=== PATIENT | female | born 1975 | race Caucasian/White ===

== ENCOUNTER 2020-09-30 10:45 | Inpatient (IN) ==
[2020-09-30] MEDS ORDERED: SODIUM CHLORIDE 0.9% 1000ML 500 ML IV ONE (11:33)
[2020-09-30] MEDS ORDERED: ONDANSETRON INJ 2 MG/ML 2 ML VIAL IV STA ×2 (11:33→13:12)
[2020-09-30 12:03] LABS: INR 1.6 (0.9-1.1); Prothrombin Time 16.1 Seconds (9.0-12.0)
--- NOTE | 2020-09-30 12:06 | Emergency Department Note ---
History of Present Illness General Chief complaint: Illness Stated complaint: VOMITING/FATTY LIVER DISEASE Time Seen by Provider: 09/30/20 10:59 History of Present Illness Maximum Pain Intensity: 6 This patient is a pleasant 44-year-old female who presents emergency department complaining of abdominal discomfort, nausea that has gotten progressively worse over the last week. The patient has a history of alcohol abuse and ascites. She reports that she stopped drinking in 2019, however she started back up again last year during the pandemic. She is nauseated. She is also had vomiting over the last several days. Bowel movements have been loose. She has not taken anything [id number] for her symptoms. The patient has had a paracentesis in the past. Her last paracentesis was in in 2019. She has not seen her GI specialist due to a lack of insurance. Home Medications Medication Instructions Recorded Confirmed Type cholecalciferol (vitamin D3) 25 mcg PO DAILY 09/30/20 09/30/20 History fluoxetine 20 mg PO DAILY 09/30/20 09/30/20 History furosemide 20 mg PO BID 09/30/20 09/30/20 History hydroxyzine HCl 50 mg PO Q6H PRN 09/30/20 09/30/20 History melatonin 5 mg PO HS PRN 09/30/20 09/30/20 History minocycline 50 mg PO DAILY 09/30/20 09/30/20 History multivitamin 1 tab PO DAILY 09/30/20 09/30/20 History potassium gluconate 595 mg PO BID 09/30/20 09/30/20 History spironolactone 50 mg PO BID 09/30/20 09/30/20 History vitamin B complex 1 tab PO DAILY 09/30/20 09/30/20 History Allergies Allergy/AdvReac Type Severity Reaction Status Date / Time morphine AdvReac Severe Respiratory Verified 09/30/20 11:41 distress Past Med/Surg History Medical History Alcohol abuse Ascites Cirrhosis Depression with anxiety Fatty liver Surgical History H/O: hysterectomy Hx of gastric bypass Micheal-en-Y Family History Father Heart disease Social History Smoking Status: Current every day smoker Do You Dip or Chew Tobacco: No; Tobacco Cessation Education Requested by Patient: No Hx Alcohol Use: Yes Alcohol type: wine Alcohol Intake Frequency: 4 or More x per/Week Alcohol Intake Frequency Comment: 1 bottle wine/day Hx Substance Use: No Preferred Language: Tongan Communication Ability: Effective Core Analysis Operator Required: No Beliefs That Will Affect Care: None Current Living Situation: Significant Other Other Information That Helps Us Care for You: No Feels Safe at Home: Yes Safety Concerns: Feels Safe At This Time Assistive Devices: Glasses Review of Systems A total of 10 systems reviewed and were otherwise negative Physical Exam Vital Signs Vital Signs - 24 hr 09/30/20 10:52 09/30/20 12:02 09/30/20 12:34 Temperature 36.7 C Temperature Source Temporal Artery Scan Pulse Rate 109 H 82 91 H Pulse Rate [Apical] Pulse Rate from SpO2 Sensor 83 89 Respiratory Rate 20 18 14 Respiratory Effort / Characteristics Respiratory Depth Respiratory Pattern Blood Pressure 131/82 Blood Pressure [Right Arm] Blood Pressure Mean 98 Blood Pressure Mean [Right Arm] Pulse Oximetry 100 95 96 Oxygen Delivery Method Room Air Sepsis Recent Fever Within 48 Hours No Sepsis New/Unexplained Change in Mental Status No Sepsis Action Taken by Nursing No Action Required 09/30/20 12:45 09/30/20 13:00 09/30/20 13:18 Temperature Temperature Source Pulse Rate 89 94 H Pulse Rate [Apical] 91 H Pulse Rate from SpO2 Sensor 90 95 H Respiratory Rate 20 16 12 Respiratory Effort / Characteristics Non-Labored Spontaneous Respiratory Depth Normal Respiratory Pattern Regular Blood Pressure 114/69 Blood Pressure [Right Arm] 114/69 Blood Pressure Mean 84 Blood Pressure Mean [Right Arm] 84 Pulse Oximetry 94 95 95 Oxygen Delivery Method Room Air Sepsis Recent Fever Within 48 Hours Sepsis New/Unexplained Change in Mental Status Sepsis Action Taken by Nursing 09/30/20 13:30 09/30/20 13:31 09/30/20 14:00 Temperature Temperature Source Pulse Rate 93 H 94 H 95 H Pulse Rate [Apical] Pulse Rate from SpO2 Sensor 94 H 94 H 95 H Respiratory Rate 15 12 12 Respiratory Effort / Characteristics Respiratory Depth Respiratory Pattern Blood Pressure 104/69 113/76 Blood Pressure [Right Arm] Blood Pressure Mean 80 88 Blood Pressure Mean [Right Arm] Pulse Oximetry 94 94 93 Oxygen Delivery Method Sepsis Recent Fever Within 48 Hours Sepsis New/Unexplained Change in Mental Status Sepsis Action Taken by Nursing 09/30/20 14:01 09/30/20 14:30 09/30/20 14:31 Temperature Temperature Source Pulse Rate 94 H 99 H 103 H Pulse Rate [Apical] Pulse Rate from SpO2 Sensor 94 H 100 H 103 H Respiratory Rate 14 19 14 Respiratory Effort / Characteristics Respiratory Depth Respiratory Pattern Blood Pressure 116/80 Blood Pressure [Right Arm] Blood Pressure Mean 92 Blood Pressure Mean [Right Arm] Pulse Oximetry 95 94 96 Oxygen Delivery Method Sepsis Recent Fever Within 48 Hours Sepsis New/Unexplained Change in Mental Status Sepsis Action Taken by Nursing 09/30/20 15:00 09/30/20 15:01 09/30/20 15:30 Temperature Temperature Source Pulse Rate 94 H 99 H 92 H Pulse Rate [Apical] Pulse Rate from SpO2 Sensor 93 H 99 H 93 H Respiratory Rate 15 15 13 Respiratory Effort / Characteristics Respiratory Depth Respiratory Pattern Blood Pressure 103/76 104/77 Blood Pressure [Right Arm] Blood Pressure Mean 85 86 Blood Pressure Mean [Right Arm] Pulse Oximetry 95 96 94 Oxygen Delivery Method Sepsis Recent Fever Within 48 Hours Sepsis New/Unexplained Change in Mental Status Sepsis Action Taken by Nursing 09/30/20 15:31 09/30/20 16:00 09/30/20 16:01 Temperature Temperature Source Pulse Rate 92 H 97 H 94 H Pulse Rate [Apical] Pulse Rate from SpO2 Sensor 92 H 98 H 94 H Respiratory Rate 14 17 15 Respiratory Effort / Characteristics Respiratory Depth Respiratory Pattern Blood Pressure 111/63 Blood Pressure [Right Arm] Blood Pressure Mean 79 Blood Pressure Mean [Right Arm] Pulse Oximetry 93 93 93 Oxygen Delivery Method Sepsis Recent Fever Within 48 Hours Sepsis New/Unexplained Change in Mental Status Sepsis Action Taken by Nursing Constitutional WD/WN, vitals as above Eyes EOM intact bilaterally ENMT Oral mucosa slightly dry Neck trachea midline Respiratory normal respiratory effort, lungs clear to auscultation Cardiovascular RRR, no murmur, no edema Gastrointestinal (Abdomen) Abdominal distention noted. Mild tenderness to palpation in the epigastric region. No guarding or rebound tenderness. Bowel sounds present in all 4 quadrants. Musculoskeletal no cyanosis or clubbing, extremities motor strength 5/5 Skin no rashes, warm and dry Neurologic Alert and oriented x3. No focal motor deficits. Psychiatric Acting appropriately Course Course Patient was seen and examined Vital signs including blood pressure were reviewed medications list was verified with patient Labs were obtained, and a saline lock was established The patient was ordered fluids and Zofran Imaging was performed The patient was reevaluated and anxious. She was ordered Ativan. We reviewed her results. She voiced understanding. We reviewed her results. She was in agreement with possible inpatient management. The hospitalist service was consulted, and kindly agreed to evaluate the patient for possible inpatient m anagement. She remained stable in the emergency department. I reviewed discharge instructions the patient. They voiced understanding and had no further questions. Administered Medications Fluoxetine HCl (Fluoxetine Hcl 20 Mg Cap) 20 mg PO DAILY TRAV Stop: 10/31/20 08:59 Last Admin: 10/01/20 07:56 Dose: 20 mg Documented by: [id number] Folic Acid (Folic Acid 1 Mg Tab) 1 mg PO QAM TRAV Stop: 10/30/20 16:59 Last Admin: 10/01/20 07:56 Dose: 1 mg Documented by: [id number] Admin: 09/30/20 17:42 Dose: 1 mg Documented by: [id number] Melatonin (Melatonin 3 Mg Tab) 3 mg PO HS PRN PRN Reason: Sleep Stop: 10/30/20 20:47 Last Admin: 10/01/20 02:45 Dose: 3 mg Documented by: [id number] Miscellaneous (Minocycline 50 Mg: Order Awaiting Action) 1 ea N/A QS TRAV Stop: 10/31/20 07:59 Last Admin: 10/01/20 07:56 Dose: Not Given Documented by: [id number] Multivitamins (Multivitamin Tab) 1 tab PO DAILY TRAV Stop: 10/31/20 08:59 Last Admin: 10/01/20 07:56 Dose: 1 tab Documented by: [id number] Spironolactone (Spironolactone 25 Mg Tab) 75 mg PO BID17 TRAV Stop: 10/30/20 16:59 Last Admin: 10/01/20 07:56 Dose: 75 mg Documented by: [id number] Admin: 09/30/20 17:43 Dose: 75 mg Documented by: [id number] Thiamine HCl (Thiamine Hcl 100 Mg Tab) 100 mg PO QAM TRAV Stop: 10/30/20 16:59 Last Admin: 10/01/20 07:56 Dose: 100 mg Documented by: [id number] Admin: 09/30/20 17:41 Dose: 100 mg Documented by: [id number] Vitamin B Complex (Vitamin B Complex Tab) 1 tab PO DAILY TRAV Stop: 10/31/20 08:59 Last Admin: 10/01/20 07:56 Dose: 1 tab Documented by: [id number] Vitamin D (Cholecalciferol 1,000 Units 25 Mcg Tab) 1,000 units PO DAILY TRAV Stop: 10/31/20 08:59 Last Admin: 10/01/20 07:56 Dose: 1,000 units Documented by: [id number] Discontinued Medications Gabapentin (Gabapentin 600 Mg Tab) 1,200 mg PO 1715 ONE Stop: 09/30/20 17:16 Last Admin: 09/30/20 17:44 Dose: 1,200 mg Documented by: [id number] Gabapentin (Gabapentin 600 Mg Tab) 600 mg PO Q6H TRAV Stop: 10/01/20 06:01 Last Admin: 10/01/20 05:38 Dose: 600 mg Documented by: [id number] Admin: 10/01/20 00:12 Dose: 600 mg Documented by: [id number] Sodium Chloride (Nss 1000ml) 500 mls @ 999 mls/hr IV .Q31M ONE Stop: 09/30/20 12:03 Last Infusion: 09/30/20 13:00 Dose: 0 mls/hr Documented by: [id number] Admin: 09/30/20 11:51 Dose: 999 mls/hr Documented by: [id number] Lorazepam (Ativan) 1 mg in 2 mls @ 2 mls/min IV NOW STA Stop: 09/30/20 12:48 Last Admin: 09/30/20 13:13 Dose: 2 mls/min Documented by: [id number] Potassium Acetate 10 meq/ (Sodium Chloride) 105 mls @ 105 mls/hr IV Q1H ONE Stop: 09/30/20 13:48 Last Admin: 09/30/20 13:28 Dose: Not Given Documented by: [id number] Magnesium Sulfate/Dextrose (Magnesium Sulfate / D5w) 1 gm in 100 mls @ 100 mls/hr IV NOW STA Stop: 09/30/20 13:50 Last Infusion: 09/30/20 14:24 Dose: 0 mls/hr Documented by: [id number] Admin: 09/30/20 13:15 Dose: 100 mls/hr Documented by: [id number] Potassium Chloride (K Vic / Wtr) 10 meq in 100 mls @ 100 mls/hr IV ONE ONE Stop: 09/30/20 14:24 Last Infusion: 09/30/20 14:56 Dose: 0 mls/hr Documented by: [id number] Admin: 09/30/20 13:30 Dose: 100 mls/hr Documented by: [id number] Magnesium Sulfate/Dextrose (Magnesium Sulfate / D5w) 1 gm in 100 mls @ 50 mls/hr IV 1700 ONE Stop: 09/30/20 18:59 Last Infusion: 09/30/20 19:52 Dose: 0 mls/hr Documented by: [id number] Admin: 09/30/20 17:44 Dose: 50 mls/hr Documented by: [id number] Ioversol (Ioversol 100ml) 93 ml IV ONCE ONE Stop: 09/30/20 12:15 Last Admin: 09/30/20 12:15 Dose: 93 ml Documented by: [id number] Ondansetron HCl (Ondansetron Inj 2 Mg/Ml 2 Ml Vial) 4 mg IV NOW STA Stop: 09/30/20 11:34 Last Admin: 09/30/20 11:50 Dose: 4 mg Documented by: [id number] Ondansetron HCl (Ondansetron Inj 2 Mg/Ml 2 Ml Vial) 4 mg IV NOW STA Stop: 09/30/20 13:13 Last Admin: 09/30/20 13:17 Dose: 4 mg Documented by: [id number] Potassium Chloride (Potassium Chloride 10 Meq / 100ml Wtr) Confirm Administered Dose 10 meq IV .STK-MED ONE Stop: 09/30/20 13:27 Last Admin: 09/30/20 13:28 Dose: Not Given Documented by: [id number] Potassium Chloride (Potassium Chloride Crtab 20 Meq Tabcr) 40 meq PO Q4H TRAV Stop: 09/30/20 21:01 Last Admin: 09/30/20 19:47 Dose: 40 meq Documented by: [id number] Admin: 09/30/20 17:41 Dose: 40 meq Documented by: [id number] Medical Decision Making Medical Records Attestation: I reviewed the patient's medical records. Home Medications Current Medication List: was personally reviewed by me Laboratory Data Attestation: I reviewed the patient's lab results. Result diagrams: 10/01/20 06:25 10/01/20 06:25 Lab Results 09/30/20 09/30/20 09/30/20 Range/Units 11:42 11:42 11:42 WBC 4.04 L (4.8-10.8) K/uL RBC 3.34 L (4.2-5.4) M/uL Hgb 12.3 (12.0-16.0) g/dL Hct 34.1 L (37-47) % MCV 102.1 H (80-100) fL MCH 36.8 H (25-34) pg MCHC 36.1 H (32-36) g/dL RDW Std Deviation 47.3 H (36.4-46.3) fL RDW Coeff of Deja 12.6 (11.5-14.5) % Plt Count 99 L (130-400) K/uL MPV 10.4 (7.4-10.4) fL Immature Gran % (Auto) 0.0 % Neut % (Auto) 63.4 % Lymph % (Auto) 18.8 % Green % (Auto) 16.6 % Eos % (Auto) 0.2 % Baso % (Auto) 1.0 % Neut # (Auto) 2.56 (1.4-6.5) K/uL Lymph # (Auto) 0.76 L (1.2-3.4) K/uL Green # (Auto) 0.67 H (0.11-0.59) K/uL Eos # (Auto) 0.01 (0-0.5) K/uL Baso # (Auto) 0.04 (0-0.2) K/uL Immature Gran # (Auto) 0.00 (0.00-0.02) K/uL Toxic Vacuolation 1+ Platelet Estimate Decreased L (Normal) Giant Platelets 1+ PT 16.1 H (9.0-12.0) Seconds INR 1.6 H (0.9-1.1) Sodium 132 L (136-145) mmol/L Potassium 2.7 L (3.5-5.1) mmol/L Chloride 94 L (98-107) mmol/L Carbon Dioxide 28 (21-32) mmol/L Anion Gap 10.0 (3-11) BUN 5 L (7-18) mg/dl Creatinine 0.61 (0.6-1.2) mg/dl Est Cr Clr Drug Dosing 114.4 ml/min Est GFR ( Amer) 127.8 Est GFR (Non-Af Amer) 110.3 BUN/Creatinine Ratio 7.5 L (10-20) Glucose 80 (70-99) mg/dl Lactate (0.4-2.0) mmol/L Calcium 8.4 L (8.5-10.1) mg/dl Phosphorus 2.4 L (2.5-4.9) mg/dl Magnesium 1.4 L (1.8-2.4) mg/dl Total Bilirubin 4.6 H (0.2-1) mg/dl AST 166 H (15-37) U/L ALT 51 (12-78) U/L Alkaline Phosphatase 145 H (45-117) U/L Total Protein 8.1 (6.4-8.2) gm/dl Albumin 2.5 L (3.4-5.0) gm/dl Globulin 5.6 H (2.5-4.0) gm/dl Albumin/Globulin Ratio 0.4 L (0.9-2) Lipase 308 (73-393) U/L Procalcitonin (0-0.5) ng/ml Ethyl Alcohol mg/dL (0-3) mg/dl COVID-19 Eval Order SARS-CoV-2, RNA, NAAT (NEGATIVE) 09/30/20 09/30/20 09/30/20 Range/Units 11:42 11:42 11:53 WBC (4.8-10.8) K/uL RBC (4.2-5.4) M/uL Hgb (12.0-16.0) g/dL Hct (37-47) % MCV (80-100) fL MCH (25-34) pg MCHC (32-36) g/dL RDW Std Deviation (36.4-46.3) fL RDW Coeff of Deja (11.5-14.5) % Plt Count (130-400) K/uL MPV (7.4-10.4) fL Immature Gran % (Auto) % Neut % (Auto) % Lymph % (Auto) % Green % (Auto) % Eos % (Auto) % Baso % (Auto) % Neut # (Auto) (1.4-6.5) K/uL Lymph # (Auto) (1.2-3.4) K/uL Green # (Auto) (0.11-0.59) K/uL Eos # (Auto) (0-0.5) K/uL Baso # (Auto) (0-0.2) K/uL Immature Gran # (Auto) (0.00-0.02) K/uL Toxic Vacuolation Platelet Estimate (Normal) Giant Platelets PT (9.0-12.0) Seconds INR (0.9-1.1) Sodium (136-145) mmol/L Potassium (3.5-5.1) mmol/L Chloride (98-107) mmol/L Carbon Dioxide (21-32) mmol/L Anion Gap (3-11) BUN (7-18) mg/dl Creatinine (0.6-1.2) mg/dl Est Cr Clr Drug Dosing ml/min Est GFR ( Amer) Est GFR (Non-Af Amer) BUN/Creatinine Ratio (10-20) Glucose (70-99) mg/dl Lactate 2.5 H* (0.4-2.0) mmol/L Calcium (8.5-10.1) mg/dl Phosphorus (2.5-4.9) mg/dl Magnesium (1.8-2.4) mg/dl Total Bilirubin (0.2-1) mg/dl AST (15-37) U/L ALT (12-78) U/L Alkaline Phosphatase (45-117) U/L Total Protein (6.4-8.2) gm/dl Albumin (3.4-5.0) gm/dl Globulin (2.5-4.0) gm/dl Albumin/Globulin Ratio (0.9-2) Lipase (73-393) U/L Procalcitonin 0.10 (0-0.5) ng/ml Ethyl Alcohol mg/dL < 3.0 (0-3) mg/dl COVID-19 Eval Order SARS-CoV-2, RNA, NAAT (NEGATIVE) 09/30/20 09/30/20 Range/Units 15:02 15:02 WBC (4.8-10.8) K/uL RBC (4.2-5.4) M/uL Hgb (12.0-16.0) g/dL Hct (37-47) % MCV (80-100) fL MCH (25-34) pg MCHC (32-36) g/dL RDW Std Deviation (36.4-46.3) fL RDW Coeff of Deja (11.5-14.5) % Plt Count (130-400) K/uL MPV (7.4-10.4) fL Immature Gran % (Auto) % Neut % (Auto) % Lymph % (Auto) % Green % (Auto) % Eos % (Auto) % Baso % (Auto) % Neut # (Auto) (1.4-6.5) K/uL Lymph # (Auto) (1.2-3.4) K/uL Green # (Auto) (0.11-0.59) K/uL Eos # (Auto) (0-0.5) K/uL Baso # (Auto) (0-0.2) K/uL Immature Gran # (Auto) (0.00-0.02) K/uL Toxic Vacuolation Platelet Estimate (Normal) Giant Platelets PT (9.0-12.0) Seconds INR (0.9-1.1) Sodium (136-145) mmol/L Potassium (3.5-5.1) mmol/L Chloride (98-107) mmol/L Carbon Dioxide (21-32) mmol/L Anion Gap (3-11) BUN (7-18) mg/dl Creatinine (0.6-1.2) mg/dl Est Cr Clr Drug Dosing ml/min Est GFR ( Amer) Est GFR (Non-Af Amer) BUN/Creatinine Ratio (10-20) Glucose (70-99) mg/dl Lactate (0.4-2.0) mmol/L Calcium (8.5-10.1) mg/dl Phosphorus (2.5-4.9) mg/dl Magnesium (1.8-2.4) mg/dl Total Bilirubin (0.2-1) mg/dl AST (15-37) U/L ALT (12-78) U/L Alkaline Phosphatase (45-117) U/L Total Protein (6.4-8.2) gm/dl Albumin (3.4-5.0) gm/dl Globulin (2.5-4.0) gm/dl Albumin/Globulin Ratio (0.9-2) Lipase (73-393) U/L Procalcitonin (0-0.5) ng/ml Ethyl Alcohol mg/dL (0-3) mg/dl COVID-19 Eval Order Covid19 [facility] SARS-CoV-2, RNA, NAAT NEGATIVE (NEGATIVE) Imaging Data Attestation: I personally reviewed and interpreted this imaging study as follows: Radiologist's Impression: Chest x-ray IMPRESSION: No active disease in the chest. ACT 112: Negative or not required by law. Electronically signed by: Mikal Latif M.D. 09/30/2020 12:26 PM Dictated: 09/30/20 1225 Transcribed: 09/30/[address] abdomen pelvis with IV contrast only IMPRESSION: 1. The liver is cirrhotic in morphology with evidence of severe steatosis. 2. A moderate to large volume of abdominopelvic ascites and recanalization of the periumbilical vein indicate portal hypertension. 3. There is postoperative change consistent with a history of Micheal-en-Y gastric bypass surgery. No bowel obstruction is seen. 4. There is wall thickening and mucosal hyperemia involving the distal stomach and pancreaticobiliary limb of the gastric bypass. Additionally, there are thick-walled and hyperemic loops of small bowel. These findings are nonspecific and may be on an infectious/inflammatory basis or could be related to metabolic state/volume status. Clinical correlation will be essential. 5. Additionally, there is significant wall thickening and edema throughout the colon, greatest involving the right colon. This could represent portal colopathy or a nonspecific colitis. 6. The gallbladder is distended. Mild gallbladder wall thickening is nonspecific and may be related to cirrhosis and ascites. If there is clinical concern for acute cholecystitis a right upper quadrant ultrasound should be considered. 7. Right-sided nephrolithiasis. 8. Additional findings as above. ACT 112: Negative or not required by law. MDM Narrative Differential diagnosis: Cirrhosis, ascites, peritonitis, bowel obstruction, pancreatitis, gallbladder pathology, coagulopathy, among others were considered This patient is a 44-year-old female who presents emergency department with complaints of abdominal bloating, discomfort and slight difficulty taking a deep breath. On exam, her vital signs are stable. Her abdomen was benign, however ascites was noted. The patient does have a history of alcohol abuse. Labs were performed. Her LFTs are significantly elevated. Her electrolytes are also abnormal. CT confirms cirrhotic liver in addition to ascites among other findings. I believe the patient would likely benefit from a paracentesis. In the interim, I ordered magnesium and potassium in the emergency department. The patient is going to be evaluated by the hospitalist team for likely inpatient management and paracentesis in the future. Impression & Plan Cirrhosis, Hypokalemia, Hypomagnesemia Discharge Plan Visit Data Chief Complaint: Illness Stated Complaint: VOMITING/FATTY LIVER DISEASE ED Provider: Marvel Tomas ED Midlevel Provider: Stephanie Almonte Discharge Problem: Cirrhosis, Hypokalemia, Hypomagnesemia Patient Disposition: Admitted As Inpatient Discharge Instructions Interventions: ED Discharge Assessment Last Done: 09/30/20 16:13
[2020-09-30 12:09] LABS: Albumin Level 2.5 gm/dl (3.4-5.0); BUN Creatinine Ratio 7.5 (10-20); Calcium 8.4 mg/dl (8.5-10.1); Creatinine Clr Calc Pharmacy 114.4 ml/min; Est GFR (African American) 127.8; Est GFR (Non-African American) 110.3; Magnesium 1.4 mg/dl (1.8-2.4); Potassium 2.7 mmol/L (3.5-5.1)
[2020-09-30 12:11] LABS: Basophils # (auto) 0.04 K/uL (0-0.2); Eosinophils # (auto) 0.01 K/uL (0-0.5); Eosinophils % (auto) 0.2 %; Giant Platelets 1+; Hematocrit (blood only) 34.1 % (37-47); Hemoglobin 12.3 g/dL (12.0-16.0); Lymphocytes # (auto) 0.76 K/uL (1.2-3.4); Lymphocytes % (auto) 18.8 %; Mean Corpuscular Hemoglobin 36.8 pg (25-34); Mean Corpuscular Hgb Conc 36.1 g/dL (32-36); Mean Corpuscular Volume 102.1 fL (80-100); Mean Platelet Volume 10.4 fL (7.4-10.4); Monocytes # (auto) 0.67 K/uL (0.11-0.59); Monocytes % (auto) 16.6 %; Neutrophils # (auto) 2.56 K/uL (1.4-6.5); Neutrophils % (auto) 63.4 %; Platelet Count 99 K/uL (130-400); Platelet Estimate Decreased (Normal); RDW Coefficient of Variation 12.6 % (11.5-14.5); RDW Standard Deviation 47.3 fL (36.4-46.3); Red Blood Count 3.34 M/uL (4.2-5.4); Toxic Vacuolation 1+; White Blood Count 4.04 K/uL (4.8-10.8)
[2020-09-30 12:12] LABS: Albumin Globulin Ratio 0.4 (0.9-2); Bilirubin,Total 4.6 mg/dl (0.2-1); Globulin 5.6 gm/dl (2.5-4.0); Phosphorus 2.4 mg/dl (2.5-4.9); Total Protein 8.1 gm/dl (6.4-8.2)
[2020-09-30] MEDS ORDERED: IOVERSOL 100ml IV ONE (12:14)
--- NOTE | 2020-09-30 12:28 | XRay Report ---
SINGLE VIEW CHEST CLINICAL HISTORY: Dyspnea. FINDINGS: An AP, portable, upright chest radiograph is compared to study dated 07/01/2019. The cardio mediastinal silhouette is unremarkable. There is mild elevation of the right hemidiaphragm and bibasi lar atelectasis. No airspace consolidation or large pleural effusion is identified. No pneumothorax i s seen. The bony thorax is grossly intact. IMPRESSION: No active disease in the chest. ACT 112: Negative or not required by law. Electronically signed by: Mikal Latif M.D. 09/30/2020 12:26 PM
[2020-09-30] MEDS ORDERED: LORazepam 1 MG/2 ML VIAL IV STA (12:47)
[2020-09-30] MEDS ORDERED: POTASSIUM ACETATE 10 MEQ in 0.9 % SODIUM CHLORIDE 100 ML IV ONE (12:49)
[2020-09-30] MEDS ORDERED: MAGNESIUM SULFATE / D5W 1 GM/100 ML BAG IV STA (12:51)
--- NOTE | 2020-09-30 12:54 | CT Scan Report ---
CT SCAN OF THE ABDOMEN AND PELVIS WITH IV CONTRAST CLINICAL HISTORY: Abdominal ascites. COMPARISON STUDY: No priors. TECHNIQUE: Following the IV administration of 93 cc of Optiray 320, CT scan of the abdomen and pelvi s is performed from the lung bases to the proximal femora. Images are reviewed in the axial, sagittal , and coronal planes. IV contrast was administered without complication. A dose lowering technique wa s utilized adhering to the principles of ALARA. CT DOSE: 373.54 mGy.cm FINDINGS: Lung bases: The heart is normal in size and without pericardial effusion. The lung bases are clear no ting bibasilar atelectasis. Liver: The contrast-enhanced liver is normal in size, cirrhotic in morphology, and demonstrates diffu sely diminished attenuation consistent with severe hepatic steatosis. There is nodularity of the hepa tic surface contour. There is no intrahepatic biliary ductal dilatation. The hepatic veins and portal veins are patent. There is recanalization of the periumbilical vein. A 2.2 cm cyst is noted in the l eft lobe. Gallbladder: The gallbladder is significantly distended. Mild gallbladder wall thickening is nonspeci fic. Spleen: Normal in size and attenuation. Pancreas: Unremarkable. Adrenal glands: Unremarkable. Kidneys: The contrast enhanced kidneys are normal in size and without hydronephrosis. The kidneys enh ance symmetrically. A 5 mm nonobstructing calculus is seen in the right lower pole. Abdominal vasculature: The abdominal aorta is normal in course and caliber. Stomach and bowel: Postoperative changes consistent with a history of Micheal-en-Y gastric bypass surger y. Wall thickening and mucosal hyperemia is seen involving the distal stomach and the pancreaticobili rush limb.. There is mild diffuse colonic wall thickening and edema, greatest involving the right colo n. There are also mildly thick-walled and hyperemic loops of small bowel. There is no evidence of obs truction. The appendix is nonvisualized. Peritoneum: There is a moderate to large volume of abdominopelvic ascites. No intraperitoneal free a ir is identified. Lymphadenopathy: None. Pelvic viscera: The bladder is decompressed and not well evaluated. The uterus is surgically absent. No adnexal lesion is seen. Skeletal structures: No lytic or blastic lesions are seen. There is advanced disc space narrowing and endplate sclerosis seen at L5-S1. IMPRESSION: 1. The liver is cirrhotic in morphology with evidence of severe steatosis. 2. A moderate to large volume of abdominopelvic ascites and recanalization of the periumbilical vein indicate portal hypertension. 3. There is postoperative change consistent with a history of Micheal-en-Y gastric bypass surgery. No lori wel obstruction is seen. 4. There is wall thickening and mucosal hyperemia involving the distal stomach and pancreaticobiliary limb of the gastric bypass. Additionally, there are thick-walled and hyperemic loops of small bowel. These findings are nonspecific and may be on an infectious/inflammatory basis or could be related to metabolic state/volume status. Clinical correlation will be essential. 5. Additionally, there is significant wall thickening and edema throughout the colon, greatest involv ing the right colon. This could represent portal colopathy or a nonspecific colitis. 6. The gallbladder is distended. Mild gallbladder wall thickening is nonspecific and may be related t o cirrhosis and ascites. If there is clinical concern for acute cholecystitis a right upper quadrant ultrasound should be considered. 7. Right-sided nephrolithiasis. 8. Additional findings as above. ACT 112: Negative or not required by law. Electronically signed by: Mikal Latif M.D. 09/30/2020 12:53 PM
[2020-09-30] MEDS ORDERED: POTASSIUM CHLORIDE / WTR 10 MEQ/100 ML PLCT IV ONE (13:25)
[2020-09-30] MEDS ORDERED: POTASSIUM CHLORIDE 10 MEQ / 100ML WTR IV ONE (13:26)
[2020-09-30] MEDS ORDERED: LORazepam 2 MG/4 ML VIAL IV PRN (16:43)
[2020-09-30] MEDS ORDERED: LORazepam 1 MG/2 ML VIAL IV PRN (16:43)
[2020-09-30] MEDS ORDERED: LORazepam 3 MG/6 ML VIAL IV PRN (16:43)
[2020-09-30] MEDS ORDERED: ATIVAN IV ALCOHOL WITHDRAWL IV PRN (16:43)
[2020-09-30] MEDS ORDERED: GABAPENTIN 1200MG ALCOHOL WITHDRAWAL LOAD PO STA (16:43)
--- NOTE | 2020-09-30 16:47 | History & Physical Report ---
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 Bili 4.6, AST 166, ALT 51, Alk Phos 145) however discriminant function 23, no indication for steroids at this time -MELD 21 -INR 1.6 -Currently hemodynamically stable, saturating well on room air. Hold on urgent paracentesis at this time -Increase spironolactone to 75 mg twice daily, hold Lasix for now due to hypokalemia -do not suspect SBP at this time -GI consult, case discussed with Dr. Hunt -Alcohol withdrawal protocol with gabapentin (5) Hypokalemia: (6) Hypomagnesemia: -K+ 2.7, Mg 1.4 -Replace, follow electrolytes (7) Thrombocytopenia: -Platelets 99K -Likely due to underlying liver disease -No signs of bleeding, monitor CBC (8) DVT prophylaxis: -SCDs due to thrombocytopenia Admission and Anticipated Discharge Date Admission Date: September 30, 2020 History of Present Illness Chief Complaint: Abdominal distention Primary Care Provider: Austen Bear DO 44-year-old female with PMH cirrhosis secondary to alcohol use and fatty liver, ascites, and other problems listed below who presents the ED for evaluation of worsening abdominal distention. Patient was diagnosed with cirrhosis due to alcohol use and fatty liver at the beginning of 2018. Patient underwent paracentesis that time for 7.8 L. Also had EGD that did not show any signs of varices. Patient reports that she quit drinking at that time and was sober until spring 2019. Patient reports she began drinking again during the lockdown due to COVID-19. She was also experiencing a lot of stressors with her job. Patient reports drinking 2 bottles of wine per day. She reports over the past 1 week, she has decreased that to 1 bottle. Over the past 2 weeks, patient notes increasing abdominal distention with acute worsening in the past 24 hours. She reports some mild shortness of breath. She has had a very poor appetite. Reports her abdomen feels tense however no abdominal pain. Denies vomiting and diarrhea. No fevers or chills. Denies chest pain. No lightheadedness, dizziness, diaphoresis, syncopal events. No urinary symptoms. In the ED, labs show K+ 2.7, MG +1.4, total bili 4.6, AST 166, ALT 51, alk phos 145. CT ABD/pelvis shows a moderate to large volume of abdominopelvic ascites. Patient received IV lorazepam, IV magnesium, IV potassium, IVF. Allergies Allergy/AdvReac Type Severity Reaction Status Date / Time morphine AdvReac Severe Respiratory Verified 09/30/20 11:41 distress Home Medications Medication Instructions Recorded Confirmed Type cholecalciferol (vitamin D3) 25 mcg PO DAILY 09/30/20 09/30/20 History fluoxetine 20 mg PO DAILY 09/30/20 09/30/20 History furosemide 20 mg PO BID 09/30/20 09/30/20 History hydroxyzine HCl 50 mg PO Q6H PRN 09/30/20 09/30/20 History melatonin 5 mg PO HS PRN 09/30/20 09/30/20 History minocycline 50 mg PO DAILY 09/30/20 09/30/20 History multivitamin 1 tab PO DAILY 09/30/20 09/30/20 History potassium gluconate 595 mg PO BID 09/30/20 09/30/20 History spironolactone 50 mg PO BID 09/30/20 09/30/20 History vitamin B complex 1 tab PO DAILY 09/30/20 09/30/20 History Past Med/Surg History Medical History Alcohol abuse Ascites Cirrhosis Depression with anxiety Fatty liver Surgical History H/O: hysterectomy Hx of gastric bypass Micheal-en-Y Family History Father Heart disease Social History Smoking Status: Current every day smoker Do You Dip or Chew Tobacco: No; Tobacco Cessation Education Requested by Patient: No Hx Alcohol Use: Yes Alcohol type: wine Alcohol Intake Frequency: 4 or More x per/Week Alcohol Intake Frequency Comment: 1 bottle wine/day Hx Substance Use: No Preferred Language: Azeri Communication Ability: Effective Community Support Professional Required: No Beliefs That Will Affect Care: None Current Living Situation: Significant Other Other Information That Helps Us Care for You: No Feels Safe at Home: Yes Safety Concerns: Feels Safe At This Time Assistive Devices: Contacts and Glasses Review of Systems Review of Systems: ROS per HPI, all other systems reviewed and negative Physical Exam Constitutional: WD/WN, vitals as above Eyes: PERRL, conjunctivae normal, anicteric sclerae ENMT: external ear and nose normal, oropharynx normal Respiratory: normal respiratory effort, lungs clear to auscultation Cardiovascular: Rate/Rhythm: regular rate and regular rhythm Vessels: normal peripheral pulses Extremities: no edema Gastrointestinal (Abdomen): Inspection/Auscultation: + abdomen distended and normal bowel sounds Percussion/Palpation: + ascites and + abdomen firm (Semifirm); abdomen nontender and no hepatosplenomegaly Musculoskeletal: no cyanosis or clubbing, extremities motor strength 5/5 Skin: no rashes, warm and dry Neurologic: PERRL, EOMI, accommodation nl, no face palsy, no dysarthria Results & Data Results & Data ([facility]) Vital Signs (Past 12 Hours) Vital Signs Temp Pulse Pulse Resp BP BP Pulse Ox 09/30/20 16:01 94 H 15 93 09/30/20 16:00 97 H 17 111/63 93 09/30/20 15:31 92 H 14 93 09/30/20 15:30 92 H 13 104/77 94 09/30/20 15:01 99 H 15 96 09/30/20 15:00 94 H 15 103/76 95 09/30/20 14:31 103 H 14 96 09/30/20 14:30 99 H 19 116/80 94 09/30/20 14:01 94 H 14 95 09/30/20 14:00 95 H 12 113/76 93 09/30/20 13:31 94 H 12 94 09/30/20 13:30 93 H 15 104/69 94 09/30/20 13:18 94 H 12 114/69 95 09/30/20 13:00 89 16 95 09/30/20 12:45 91 H 20 114/69 94 09/30/20 12:34 91 H 14 96 09/30/20 12:02 82 18 95 09/30/20 10:52 36.7 C 109 H 20 131/82 100 Laboratory Results Short CBC 09/30/20 Range/Units 11:42 WBC 4.04 L (4.8-10.8) K/uL Hgb 12.3 (12.0-16.0) g/dL Hct 34.1 L (37-47) % Plt Count 99 L (130-400) K/uL BMP 09/30/20 11:42 Sodium 132 L Potassium 2.7 L Chloride 94 L Carbon Dioxide 28 BUN 5 L Creatinine 0.61 Glucose 80 Calcium 8.4 L Liver Function 09/30/20 Range/Units 11:42 Total Bilirubin 4.6 H (0.2-1) mg/dl AST 166 H (15-37) U/L ALT 51 (12-78) U/L Alkaline Phosphatase 145 H (45-117) U/L Albumin 2.5 L (3.4-5.0) gm/dl Diagnostic Findings CXR IMPRESSION: No active disease in the chest. CT ABD/PELVIS IMPRESSION: 1. The liver is cirrhotic in morphology with evidence of severe steatosis. 2. A moderate to large volume of abdominopelvic ascites and recanalization of the periumbilical vein indicate portal hypertension. 3. There is postoperative change consistent with a history of Micheal-en-Y gastric bypass surgery. No bowel obstruction is seen. 4. There is wall thickening and mucosal hyperemia involving the distal stomach and pancreaticobiliary limb of the gastric bypass. Additionally, there are thick-walled and hyperemic loops of small bowel. These findings are nonspecific and may be on an infectious/inflammatory basis or could be related to metabolic state/volume status. Clinical correlation will be essential. 5. Additionally, there is significant wall thickening and edema throughout the colon, greatest involving the right colon. This could represent portal colopathy or a nonspecific colitis. 6. The gallbladder is distended. Mild gallbladder wall thickening is nonspecific and may be related to cirrhosis and ascites. If there is clinical concern for acute cholecystitis a right upper quadrant ultrasound should be considered. 7. Right-sided nephrolithiasis. 8. Additional findings as above. Code Status & VTE Plan Code Status Patient is a full code as per my discussion with her. VTE Prophylaxis Plan VTE Prophylaxis will be ordered: Yes Supervising Physician Co-Signing Physician Notes Attending Addendum: care coordinated with AYUSH Stauffer please refer to her notes for full details, I agree with her notes patient seen and examined, records reviewed by myself as well on exam, patient seen resting in bed, sitting up comfortable states she feels improved compared to admission denies active abdominal pain, nausea, dyspnea, chest pain, palpitations no tremors, anxiety, sweats, confusion no other symptoms VS noted and reviewed oriented x 3, not in distress, speaks in sentences with no effort nor accessory muscle use normal rate, regular rhythm, no murmurs clear breath sounds bilaterally mildly distended, soft, nontender no bipedal edema, erythema, warmth; (+) mild bruising R upper wills region no neuro deficits WBC 4.04 Hg 12.3 Crea 0.61 K 2.7 Mg 1.4 Ph 2.4 ASSESSMENT AND PLAN LIVER CIRRHOSIS WITH ASCITES Aldactone increased Lasix held for hypokalemia Paracentesis on Friday ALCOHOLISM Alcohol Withdrawal protocol with Gabapentin taper HYPO K, MG, PH PO replacement in progress other diagnoses and plan of care as per AYUSH Stauffer's notes Jairon Sawyer MD
[2020-09-30] MEDS ORDERED: MAGNESIUM SULFATE / D5W 1 GM/100 ML BAG IV ONE (17:00)
[2020-09-30] MEDS ORDERED: GABAPENTIN 600 MG TAB PO ONE (17:15)
[2020-09-30] MEDS: POTASSIUM CHLORIDE CRTAB 20 MEQ TABCR PO SCH ×2 (17:41→19:47)
[2020-09-30] MEDS: THIAMINE HCL 100 MG TAB PO SCH (17:41)
[2020-09-30] MEDS: FOLIC ACID 1 MG TAB PO SCH (17:42)
[2020-09-30] MEDS: SPIRONOLACTONE 25 MG TAB PO SCH (17:43)
[2020-09-30 19:47] LABS: Appearance Urine Clear (Clear); Bacteria Urine Automated Negative (Negative); Blood Urine Negative (Negative); Cast Urine Automated 0 /lpf (0-5); Color Urine Orange; Epithelial Cell Urine Auto >30 /lpf (0-5); Glucose Urine UA Negative (Negative); Ketones Urine Trace (Negative); Leukocyte Esterase Urine Trace (Negative); Nitrite Urine Positive (Negative); Protein Urine Negative (Negative); Specific Gravity Urine > 1.045 (1.000-1.030); Urobilinogen Urine Positive (Negative); pH Urine 6.5 (4.5-7.5)
[2020-09-30 20:02] LABS: Bilirubin Urine 1+ (Negative)
[2020-09-30 20:11] LABS: Pregnancy Test, Urine Negative (Negative)
[2020-09-30 20:17] LABS: Calcium Oxalate Crystals Urine Present (None Prsent); RBC Urine Automated 0-4 /hpf (0-4)
[2020-09-30 23:22] LABS: BUN Creatinine Ratio 7.2 (10-20); Creatinine Clr Calc Pharmacy 104.2 ml/min; Est GFR (African American) 123.9; Est GFR (Non-African American) 106.9; Potassium 3.6 mmol/L (3.5-5.1)
[2020-10-01] MEDS: GABAPENTIN 600 MG TAB PO SCH ×4 (00:12→21:52)
[2020-10-01] MEDS: MELATONIN 3 MG TAB PO PRN (02:45)
--- NOTE | 2020-10-01 06:33 | Electrocardiogram Report ---
Test Reason : Blood Pressure : / mmHG Vent. Rate : 083 BPM Atrial Rate : 083 BPM P-R Int : 156 ms QRS Dur : 092 ms QT Int : 460 ms P-R-T Axes : 034 003 022 degrees QTc Int : 540 ms Normal sinus rhythm Cannot rule out Anterior infarct (cited on or before 30-SEP-2020) Nonspecific T wave abnormality Prolonged QT Abnormal ECG When compared with ECG of 01-JUL-2019 19:56, T wave inversion now evident in Anterior leads Confirmed by Carlos Rodgers ([id number]) on 10/01/2020 6:32:56 AM Referred By: REFERRED SELF Confirmed By:Carlos Rodgers
[2020-10-01 06:47] LABS: Hematocrit (blood only) 32.2 % (37-47); Mean Corpuscular Hemoglobin 35.5 pg (25-34); Mean Corpuscular Hgb Conc 34.2 g/dL (32-36); Mean Corpuscular Volume 103.9 fL (80-100); RDW Coefficient of Variation 12.9 % (11.5-14.5); RDW Standard Deviation 48.9 fL (36.4-46.3); White Blood Count 3.65 K/uL (4.8-10.8)
[2020-10-01 06:54] LABS: Mean Platelet Volume 10.2 fL (7.4-10.4); Platelet Count 79 K/uL (130-400)
[2020-10-01 06:55] LABS: INR 1.9 (0.9-1.1)
[2020-10-01 07:18] LABS: Albumin Level 2.1 gm/dl (3.4-5.0); BUN Creatinine Ratio 8.2 (10-20); Calcium 8.2 mg/dl (8.5-10.1); Creatinine Clr Calc Pharmacy 102.7 ml/min; Est GFR (African American) 123.3; Est GFR (Non-African American) 106.4; Magnesium 1.9 mg/dl (1.8-2.4); Potassium 3.7 mmol/L (3.5-5.1)
[2020-10-01 07:21] LABS: Albumin Globulin Ratio 0.4 (0.9-2); Globulin 4.7 gm/dl (2.5-4.0); Total Protein 6.8 gm/dl (6.4-8.2)
[2020-10-01] MEDS: FLUoxetine HCL 20 MG CAP PO SCH (07:56)
[2020-10-01] MEDS: VITAMIN B COMPLEX TAB PO SCH (07:56)
[2020-10-01] MEDS: THIAMINE HCL 100 MG TAB PO SCH (07:56)
[2020-10-01] MEDS: FOLIC ACID 1 MG TAB PO SCH (07:56)
[2020-10-01] MEDS: MULTIVITAMIN TAB PO SCH (07:56)
[2020-10-01] MEDS: SPIRONOLACTONE 25 MG TAB PO SCH ×2 (07:56→17:15)
[2020-10-01] MEDS: CHOLECALCIFEROL 1,000 UNITS 25 MCG TAB PO SCH (07:56)
[2020-10-01] MEDS ORDERED: LORazepam 0.5 MG/1 ML VIAL IV PRN (08:50)
--- NOTE | 2020-10-01 17:18 | Hospitalist Progress Note ---
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 Bili 4.6, AST 166, ALT 51, Alk Phos 145) however discriminant function 23, no indication for steroids at this time -MELD 21 -INR 1.6 -Currently hemodynamically stable, saturating well on room air. Hold on urgent paracentesis at this time -Increase spironolactone to 75 mg twice daily, hold Lasix for now due to hypokalemia -do not suspect SBP at this time -GI consult, case discussed with Dr. Hunt -Alcohol withdrawal protocol with gabapentin 10/01/2020 Stable overall Abdominal pain improving No respiratory distress Continue Aldactone 75 mg twice daily, Lasix on hold Plan for paracentesis tomorrow No signs of overt alcohol withdrawal Continue alcohol withdrawal protocol with gabapentin taper INR 1.9 but with no signs of bleeding Monitor (5) Hypokalemia: (6) Hypomagnesemia: Resolved after replacement (7) Thrombocytopenia: -Platelets 99K -Likely due to underlying liver disease -No signs of bleeding, monitor CBC Late today 79,000 No signs of bleeding Monitor (8) DVT prophylaxis: -SCDs due to thrombocytopenia Plan of care discussed with patient in detail at length All questions were answered She is understanding and agreeable, comfortable with plan of care Admission and Anticipated Discharge Date Admission Date: September 30, 2020 Subjective Follow-up for liver cirrhosis with ascites, alcohol withdrawal Seen sitting up in bed, comfortable, not in distress, in good spirits States she feels improved today compared to yesterday No abdominal pain today, no nausea vomiting No shortness of breath Denies tremors or anxiety, was somewhat confused this morning but improved Was not able to sleep last night due to activities on the floor No bleeding No other symptoms Review of Systems Review of Systems: All systems reviewed & are unremarkable except as noted in Subjective Physical Exam Physical Exam: General- oriented x 3, not in distress, speaks in sentences with no effort or accessory muscle use Eyes- anicteric Neck- no JVD Lungs- clear breath sounds bilaterally, no rales/wheezes Heart- normal rate, regular rhythm; no murmurs Abdomen- normal bowel sounds, mildly distended, soft, nontender Extremities- no pretibial edema, no calf tenderness No tremors Neuro- alert, oriented x 3; no gross focal neurologic deficits Skin- warm & dry Results & Data Results & Data ([facility]) Vital Signs (Past 12 Hours) Vital Signs Temp Pulse Pulse Resp BP Pulse Ox 10/01/20 15:14 37.1 C 81 19 115/75 92 10/01/20 11:22 36.8 C 97 H 19 113/75 93 10/01/20 09:38 78 10/01/20 06:57 36.7 C 88 17 111/74 96 Laboratory Results Laboratory Results - last 24 hr 09/30/20 09/30/20 09/30/20 17:11 19:35 19:35 WBC RBC Hgb Hct MCV MCH MCHC RDW Std Deviation RDW Coeff of Deja Plt Count MPV PT INR Sodium Potassium Chloride Carbon Dioxide Anion Gap BUN Creatinine Est Cr Clr Drug Dosing Est GFR ( Amer) Est GFR (Non-Af Amer) BUN/Creatinine Ratio Glucose Lactate 1.2 Calcium Magnesium Total Bilirubin AST ALT Alkaline Phosphatase Ammonia Total Protein Albumin Globulin Albumin/Globulin Ratio Urine Color [place] Urine Appearance Clear Urine pH 6.5 Ur Specific [place] > 1.045 H Urine Protein Negative Urine Glucose (UA) Negative Urine Ketones Trace H Urine Blood Negative Urine Nitrite Positive A Urine Bilirubin 1+ H Urine Urobilinogen Positive H Ur Leukocyte Esterase Trace H Urine WBC (Auto) 1-5 Urine RBC (Auto) 0-4 U Hyaline Cast (Auto) 0 U Epithel Cells (Auto) >30 H Urine Bacteria (Auto) Negative Calcium Oxalate Crystal Present A Urine Test Negative 09/30/20 10/01/20 10/01/20 22:30 06:25 06:25 WBC 3.65 L RBC 3.10 L Hgb 11.0 L Hct 32.2 L MCV 103.9 H MCH 35.5 H MCHC 34.2 RDW Std Deviation 48.9 H RDW Coeff of Deja 12.9 Plt Count 79 L MPV 10.2 PT 18.0 H INR 1.9 H Sodium 136 Potassium 3.6 D Chloride 100 Carbon Dioxide 30 Anion Gap 7.0 BUN 5 L Creatinine 0.67 Est Cr Clr Drug Dosing 104.2 Est GFR ( Amer) 123.9 Est GFR (Non-Af Amer) 106.9 BUN/Creatinine Ratio 7.2 L Glucose 79 Lactate Calcium 8.0 L Magnesium Total Bilirubin AST ALT Alkaline Phosphatase Ammonia Total Protein Albumin Globulin Albumin/Globulin Ratio Urine Color Urine Appearance Urine pH Ur Specific [place] Urine Protein Urine Glucose (UA) Urine Ketones Urine Blood Urine Nitrite Urine Bilirubin Urine Urobilinogen Ur Leukocyte Esterase Urine WBC (Auto) Urine RBC (Auto) U Hyaline Cast (Auto) U Epithel Cells (Auto) Urine Bacteria (Auto) Calcium Oxalate Crystal Urine Test 10/01/20 10/01/20 06:25 10:01 WBC RBC Hgb Hct MCV MCH MCHC RDW Std Deviation RDW Coeff of Deja Plt Count MPV PT INR Sodium 134 L Potassium 3.7 Chloride 99 Carbon Dioxide 27 Anion Gap 7.0 BUN 6 L Creatinine 0.68 Est Cr Clr Drug Dosing 102.7 Est GFR ( Amer) 123.3 Est GFR (Non-Af Amer) 106.4 BUN/Creatinine Ratio 8.2 L Glucose 76 Lactate Calcium 8.2 L Magnesium 1.9 Total Bilirubin 5.0 H AST 120 H ALT 40 Alkaline Phosphatase 116 Ammonia 51.6 H Total Protein 6.8 Albumin 2.1 L Globulin 4.7 H Albumin/Globulin Ratio 0.4 L Urine Color Urine Appearance Urine pH Ur Specific [place] Urine Protein Urine Glucose (UA) Urine Ketones Urine Blood Urine Nitrite Urine Bilirubin Urine Urobilinogen Ur Leukocyte Esterase Urine WBC (Auto) Urine RBC (Auto) U Hyaline Cast (Auto) U Epithel Cells (Auto) Urine Bacteria (Auto) Calcium Oxalate Crystal Urine Test
--- NOTE | 2020-10-01 19:30 | Consultation Report ---
DATE OF CONSULTATION: 10/01/2020 GASTROENTEROLOGY CONSULT NOTE REASON FOR CONSULTATION: I was asked to consult on this woman for evaluation of cirrhosis and ascites by Dr. Stauffer. HISTORY OF PRESENT ILLNESS: The patient is a 44-year-old with known alcoholic cirrhosis dating back to 2018. She had previously been followed by Dr. 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 She stopped followup due to insurance issues. The patient had been sober for quite some time, though due to the ongoing viral pandemic and the shut downs, the patient began drinking again. She came into the hospital because of increased abdominal girth. The patient denies fever. She denies any hematemesis. She denies any rectal bleeding. She has had some issues with alcohol withdrawal in the past. She also has a history of gastric bypass. I reviewed her medical records and her past medical history. PAST MEDICAL HISTORY: Significant for what is already mentioned as well as depression. She is status post hysterectomy and gastric bypass. FAMILY HISTORY: She denies any family history of gastrointestinal disease. SOCIAL HISTORY: Significant for active smoking and alcohol use. ALLERGIES: SHE STATES SHE IS ALLERGIC TO MORPHINE. HOME MEDICATIONS: Include vitamins, fluoxetine, Lasix 20 twice a day, melatonin, minocycline, hydroxyzine, and spironolactone 50 twice a day. There is some question whether she was compliant during her drinking spells recently. REVIEW OF SYSTEMS: As above, otherwise she denies any recent change in vision or hearing. She has had no seizures. She denies any fevers. She has had some issues with bruising. She denies any joint swelling. She has had no dysuria. She denies polyuria. She denies productive cough. She has had weakness, but no shortness of breath. She denies palpitations and chest pain. 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 PHYSICAL EXAMINATION: GENERAL: Reveals a pleasant woman who appears slightly shaky. VITAL SIGNS: Her most recent blood pressure is 113/75, pulse is 97, temperature is 36.8. NEUROLOGIC: She is alert and oriented x3. She is slightly icteric. EYES: Show slight scleral icterus. Mouth is dry, but clear of lesions. NECK: Thin, but supple with no adenopathy. CHEST: Clear. HEART: Regular. ABDOMEN: Distended with ascites, but not tense and nontender. There are no obvious masses. There are good bowel sounds. EXTREMITIES: Thin, but warm with fair distal pulses. NEUROLOGIC: She is alert and oriented x3. She does have a slight flap. SKIN: She does have spider angiomata on her skin. DATA: Most recent labs show a white blood cell count of 3.6, hemoglobin of 11, platelet count of 79,000. Total bilirubin is 5 with an AST of 120 and an ALT of 40, alkaline phosphatase is 116. Ammonia is 51.6. An imaging reveals moderate to large volume ascites upon admission. IMPRESSION AND PLAN: A 44-year-old woman with alcoholic cirrhosis and ascites. She is already feeling less distended since her spironolactone was increased to 75 twice a day with her Lasix, though I do think she would benefit from a paracentesis of 3 or 4 liters. Follow her electrolytes and renal function carefully. We discussed alcohol abstinence. We also discussed the need to follow up with hepatology and her doctor, Dr. Connell. I would be careful and follow her mental status and add lactulose if there are any issues with change in mental status or forgetfulness that may manifest encephalopathy. Also, continue to watch for withdrawal.
[2020-10-01] MEDS: LACTULOSE SYRUP 30 GM/45 ML UDP PO SCH (19:57)
[2020-10-01] MEDS: diphenhydrAMINE Capsule 25 MG CAP PO PRN (21:52)
[2020-10-02] MEDS: GABAPENTIN 600 MG TAB PO SCH ×2 (06:01→17:49)
[2020-10-02] MEDS: SPIRONOLACTONE 25 MG TAB PO SCH ×2 (07:31→17:48)
[2020-10-02] MEDS: VITAMIN B COMPLEX TAB PO SCH (07:32)
[2020-10-02] MEDS: MULTIVITAMIN TAB PO SCH (07:32)
[2020-10-02] MEDS: THIAMINE HCL 100 MG TAB PO SCH (07:32)
[2020-10-02] MEDS: FLUoxetine HCL 20 MG CAP PO SCH (07:32)
[2020-10-02] MEDS: FOLIC ACID 1 MG TAB PO SCH (07:32)
[2020-10-02] MEDS: LACTULOSE SYRUP 30 GM/45 ML UDP PO SCH ×3 (07:32→19:56)
[2020-10-02] MEDS: CHOLECALCIFEROL 1,000 UNITS 25 MCG TAB PO SCH (07:32)
[2020-10-02 09:01] LABS: Hematocrit (blood only) 34.5 % (37-47); Hemoglobin 11.8 g/dL (12.0-16.0); Mean Corpuscular Hemoglobin 36.3 pg (25-34); Mean Corpuscular Hgb Conc 34.2 g/dL (32-36); Mean Corpuscular Volume 106.2 fL (80-100); RDW Coefficient of Variation 12.8 % (11.5-14.5); RDW Standard Deviation 49.7 fL (36.4-46.3); Red Blood Count 3.25 M/uL (4.2-5.4); White Blood Count 3.91 K/uL (4.8-10.8)
[2020-10-02 09:08] LABS: Mean Platelet Volume 10.7 fL (7.4-10.4); Platelet Count 89 K/uL (130-400)
[2020-10-02 09:29] LABS: Albumin Level 2.2 gm/dl (3.4-5.0); BUN Creatinine Ratio 6.6 (10-20); Calcium 8.9 mg/dl (8.5-10.1); Creatinine Clr Calc Pharmacy 79.3 ml/min; Est GFR (African American) 92.6; Est GFR (Non-African American) 79.9; Magnesium 1.8 mg/dl (1.8-2.4); Potassium 3.2 mmol/L (3.5-5.1)
[2020-10-02 09:31] LABS: Albumin Globulin Ratio 0.4 (0.9-2); Bilirubin,Total 4.8 mg/dl (0.2-1); Globulin 5.2 gm/dl (2.5-4.0); Total Protein 7.4 gm/dl (6.4-8.2)
[2020-10-02] MEDS ORDERED: POTASSIUM CHLORIDE CRTAB 20 MEQ TABCR PO ONE (09:32)
--- NOTE | 2020-10-02 10:01 | XRay Report ---
KUB HISTORY: vomiting COMPARISON: Abdomen and pelvis CT 09/30/2020. FINDINGS: Centralized bowel consistent with the patient's moderate ascites. Nondilated gas-filled loo ps of small bowel are noted. Gas and stool-filled colon. There are surgical clips within the midabdom en. No evidence for bowel obstruction. No renal calculi. No ureteral calculi. No pneumoperitoneum or pneumatosis. IMPRESSION: 1. No evidence for bowel obstruction. 2. Moderate ascites. 3. Moderate well-formed stool seen throughout the colon. ACT 112: Negative or not required by law. Electronically signed by: Nabil Walsh M.D. 10/02/2020 9:59 AM
[2020-10-02] MEDS ORDERED: ALBUMIN 25% 12.5 GM/50 ML VIAL IV SCH (10:15)
--- NOTE | 2020-10-02 10:18 | Hospitalist Progress Note ---
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 Bili 4.6, AST 166, ALT 51, Alk Phos 145) however discriminant function 23, no indication for steroids at this time, MELD 21, INR 1.6 -LFTs remain stable -Spironolactone increased to 75 mg twice daily on day of admission, holding Lasix secondary to hypokalemia -do not suspect SBP at this time -Yesterday, nursing reported patient was having hallucinations. Ammonia level 51.6 -> 72.6 today, lactulose started 10/01. -GI consult -Planning for paracentesis today -KUB x-ray checked due to reports of nausea/dry heaves this morning, no signs of obstruction or free air. Shows moderate mount of stool in the colon. (4) Alcohol abuse: -On alcohol withdrawal protocol with gabapentin -Seems to be experiencing signs of withdrawal today with agitation and nausea -Monitor closely (5) Hypokalemia: (6) Hypomagnesemia: -Resolved after replacement (7) Thrombocytopenia: -Platelets 89L today -Likely due to underlying liver disease -No signs of bleeding, monitor CBC (8) DVT prophylaxis: -SCDs due to thrombocytopenia (9) Discharge planning issues: -Case management following - provided patient with information for medical assistance, [facility], inpatient and outpatient alcohol rehab services Admission and Anticipated Discharge Date Admission Date: September 30, 2020 Supervising Physician Co-Signing Physician Notes Attending Addendum: care coordinated with AYUSH ware please refer to her notes for full details, I agree with her notes patient seen and examined, records reviewed by myself as well on exam, patient seen resting in bed, comfortable, very sleepy Denies shortness of breath, abdominal pain, nausea no other symptoms VS noted and reviewed not in distress, speaks in sentences with no effort nor accessory muscle use normal rate, regular rhythm, no murmurs clear breath sounds bilaterally non distended, soft, nontender no bipedal edema, erythema, warmth no neuro deficits WBC 3.9 Hg 11.8 Crea 0.88 ASSESSMENT AND PLAN Liver cirrhosis with ascites Status post paracentesis draining 4 L Continue Aldactone daily Alcohol withdrawal No signs of overt alcohol withdrawal Continue gabapentin protocol other diagnoses and plan of care as per AYUSH ware's notes Jairon Sawyer MD Subjective Patient seen and examined. Seems a little agitated this morning. Started on lactulose yesterday due to increased ammonia levels and hallucinations. Patient reports she ate too much for breakfast and developed nausea and dry heaves this morning. No abdominal pain. Passing flatus however no BM since starting lactulose. Denies chest pain and shortness of breath. Ambulating to the bathroom without difficulty. Physical Exam Constitutional: no acute distress resting in bed Respiratory: normal respiratory effort, lungs clear to auscultation Cardiovascular: Rate/Rhythm: regular rate and regular rhythm Vessels: normal peripheral pulses Extremities: no edema Gastrointestinal (Abdomen): Inspection/Auscultation: + abdomen distended Percussion/Palpation: abdomen soft and + ascites; abdomen nontender No asterixis Neurologic: No gross focal deficit, mild tremor noted with outstretched hands Results & Data Results & Data ([facility]) Vital Signs (Past 12 Hours) Vital Signs Temp Pulse Pulse Resp BP BP Pulse Ox 10/02/20 08:00 70 10/02/20 07:05 36.6 C 76 19 104/65 93 10/02/20 03:21 36.7 C 81 18 112/73 93 10/01/20 23:38 36.7 C 85 18 103/61 96
--- NOTE | 2020-10-02 11:29 | Gastroenterology Progress Note ---
Date of Service October 02, 2020 Assessment & Plan (1) Ascites: Blood cultures. Will hold on paracentesis for now as low Na diet, alcohol cessation will likely improve her ascites and she does not appear extremely large or having any breathing difficulties. No effusions on CXR. Continue spironolactone at 75mg/day. May eventually consider adding furosemide but hesitate to aggressively diurese a pt who is drinking alcohol. Ascites seems improved since arrival. Present on Admission?: Yes (2) Alcohol abuse: Discussed importance of abstinence. Continue ETOH detox. Present on Admission?: Yes (3) Cirrhosis: Cirrhosis with alcoholic hepatitis. Recent bump in LFTs likely secondary to continuing to drink alcohol. Will check blood cultures. Her DF is 32. If no growth on blood cultures then will start Prednisolone for tx of alcoholic hepatitis. Present on Admission?: Yes Admission and Anticipated Discharge Date Admission Date: September 30, 2020 Supervising Physician Co-Signing Physician Notes I have seen and examined the patient and discussed the management with AYUSH Wright. 44 yo fm with history of rygb and also etoh use, admitted with nausea, found to have ascites. She has started drinking again reportedly due to the stress of the pandemic PE noetable for ascites - soft abdomne Labs reviewed- ast/tb elevation MDF is borderline Given bilirubin, would rule out infection with blood cultures. Paracentesis, diuretics. Ideally need to stop drinking all together to prevent further decompensation - she is aware of this. Subjective Ms. Hyatt is a 44 yr old female pt with ETOH cirrhosis with ascites, presented with enlarging abdomen, still drinking alcohol, most recently Friday afternoon. Admitted 09/30/20. Admitted on 09/30. Denies fevers, nausea/vomiting, blood in BMs, or confusion though there was mention of some confusion during this admission. Pt lucid this morning, able to tell us today's date, though may has some very mild confusion - awkward wording of the name of this hospital and said she is in the ED when asked where she is. CT with cirrhosis and mod to large ascites, post gastric bypass. Urine Cx (-) and CXR normal. Review of Systems Review of Systems: ROS: Gen: Denies weakness, fevers, weight loss Eyes: No eye redness, or pain, no recent vision changes Resp: No SOB, no cough Cardio: No palpitations/irregular beats, no chest pain GI: See HPI : Denies pain on urination Skin: No jaundice, itching or new rashes Physical Exam Constitutional: WD/WN, vitals as above + thin (but with large abd - ascites) Eyes: PERRL, conjunctivae normal, anicteric sclerae ENMT: external ear and nose normal, oropharynx normal Neck: trachea midline, no thyromegaly Respiratory: normal respiratory effort, lungs clear to auscultation Cardiovascular: RRR, no murmur, no edema Gastrointestinal (Abdomen): Inspection/Auscultation: + abdomen distended (with ascites) Percussion/Palpation: abdomen soft (ascites); abdomen nontender Musculoskeletal: no cyanosis or clubbing, extremities motor strength 5/5 Skin: no rashes, warm and dry no jaundice Neurologic: PERRL, EOMI, accommodation nl, no face palsy, no dysarthria Psychiatric: Orientation: oriented x 3 Motor Behavior: n tremor Lymphatic: no cervical or axillary lymphadenopathy Results & Data ([facility]) Vital Signs (Past 12 Hours) Vital Signs Temp Pulse Pulse Resp BP BP Pulse Ox 10/02/20 11:05 36.8 C 81 19 112/79 91 10/02/20 08:00 70 10/02/20 07:05 36.6 C 76 19 104/65 93 10/02/20 03:21 36.7 C 81 18 112/73 93 10/01/20 23:38 36.7 C 85 18 103/61 96 Laboratory Results WBC 3.6, Hb 11, HCT 32, platelets 79, PT 18, INR 1.9, NA 134, K3.7, BUN six, CR 0.68, glucose 76. Diagnostic Findings CT 10/02/20: 1. The liver is cirrhotic in morphology with evidence of severe steatosis. 2. A moderate to large volume of abdominopelvic ascites and recanalization of the periumbilical vein indicate portal hypertension. 3. There is postoperative change consistent with a history of Micheal-en-Y gastric bypass surgery. No bowel obstruction is seen. 4. There is wall thickening and mucosal hyperemia involving the distal stomach and pancreaticobiliary limb of the gastric bypass. Additionally, there are thick-walled and hyperemic loops of small bowel. These findings are nonspecific and may be on an infectious/inflammatory basis or could be related to metabolic state/volume status. Clinical correlation will be essential. 5. Additionally, there is significant wall thickening and edema throughout the colon, greatest involving the right colon. This could represent portal colopathy or a nonspecific colitis. 6. The gallbladder is distended. Mild gallbladder wall thickening is nonspecific and may be related to cirrhosis and ascites. If there is clinical concern for acute cholecystitis a right upper quadrant ultrasound should be considered. 7. Right-sided nephrolithiasis. 8. Additional findings as above.
[2020-10-02] MEDS: ALBUMIN 25% 12.5 GM/50 ML VIAL IV SCH ×4 (13:04→17:15)
--- NOTE | 2020-10-02 15:23 | Ultrasound Report ---
ULTRASOUND GUIDED DIAGNOSTIC AND THERAPEUTIC PARACENTESIS CLINICAL HISTORY: CIRRHOSIS WITH ASCITES COMPARISON STUDY: CT of the abdomen and pelvis September 30, 2020. PROCEDURE: The risks, benefits, and alternatives to the procedure were discussed with the patient inc luding the risk of bleeding, infection and injury to adjacent structures. The patient agreed to the procedure and informed written consent was obtained. Following real-time ultrasound localization, the skin of the right lower quadrant was prepped and draped. Following local anesthesia with Xylocaine, the sheath paracentesis needle was inserted and approximately 4.2 liters of straw-colored fluid was r emoved by vacuum suction. The patient tolerated the procedure well and no immediate complications were evident. IMPRESSION: Ultrasound-guided paracentesis with removal of 4.2 liters of ascites. 1 L of ascites was sent to the laboratory for analysis as ordered. ACT 112: Negative or not required by law. Electronically signed by: Marquez Gonzalez M.D. 10/02/2020 3:21 PM
[2020-10-02 16:05] LABS: Albumin Peritoneal Fluid 0.6 g/dl; Glucose Peritoneal Fluid 88 mg/dl
[2020-10-02 16:08] LABS: Appearance Peritoneal Fluid CLEAR; Color Peritoneal Fluid YELLOW; Eosinophils, Fluid 0 %; Lymphocytes, Fluid 20 %; Mono,Macrophage,Mesothelial 76 %; Neutrophils, Fluid 4 %; RBC Peritoneal Fluid (A) < 3000 /uL; WBC Peritoneal Fluid (A) 196 /ul (0-300)
[2020-10-02 16:12] LABS: Amylase Peritoneal Fluid 26 U/L; LDH Peritoneal Fluid 75 U/L; Lipase Peritoneal Fluid 216 U/L; Total Protein Peritoneal Fluid 1.7 g/dl; Triglyceride Peritoneal Fluid 26 mg/dl
[2020-10-02] MEDS: diphenhydrAMINE Capsule 25 MG CAP PO PRN (20:13)
[2020-10-02] MEDS: MELATONIN 3 MG TAB PO PRN (20:13)
[2020-10-03] MEDS: GABAPENTIN 600 MG TAB PO SCH (05:48)
[2020-10-03 06:41] LABS: Hematocrit (blood only) 31.9 % (37-47); Mean Corpuscular Hemoglobin 36.1 pg (25-34); Mean Corpuscular Hgb Conc 34.5 g/dL (32-36); Mean Corpuscular Volume 104.6 fL (80-100); RDW Coefficient of Variation 12.8 % (11.5-14.5); RDW Standard Deviation 48.5 fL (36.4-46.3); Red Blood Count 3.05 M/uL (4.2-5.4); White Blood Count 3.88 K/uL (4.8-10.8)
[2020-10-03 06:47] LABS: Mean Platelet Volume 10.2 fL (7.4-10.4); Platelet Count 78 K/uL (130-400)
[2020-10-03 06:52] LABS: Prothrombin Time 19.5 Seconds (9.0-12.0)
[2020-10-03 07:22] LABS: Albumin Level 2.3 gm/dl (3.4-5.0); BUN Creatinine Ratio 6.7 (10-20); Calcium 8.2 mg/dl (8.5-10.1); Creatinine Clr Calc Pharmacy 117.6 ml/min; Est GFR (African American) 129.9; Est GFR (Non-African American) 112.1; Potassium 3.7 mmol/L (3.5-5.1)
[2020-10-03 07:30] LABS: Albumin Globulin Ratio 0.5 (0.9-2); Bilirubin,Total 4.5 mg/dl (0.2-1); Globulin 4.2 gm/dl (2.5-4.0); Total Protein 6.5 gm/dl (6.4-8.2)
[2020-10-03] MEDS: CHOLECALCIFEROL 1,000 UNITS 25 MCG TAB PO SCH (07:34)
[2020-10-03] MEDS: FLUoxetine HCL 20 MG CAP PO SCH (07:34)
[2020-10-03] MEDS: FOLIC ACID 1 MG TAB PO SCH (07:34)
[2020-10-03] MEDS: THIAMINE HCL 100 MG TAB PO SCH (07:34)
[2020-10-03] MEDS: LACTULOSE SYRUP 30 GM/45 ML UDP PO SCH ×3 (07:34→19:46)
[2020-10-03] MEDS: VITAMIN B COMPLEX TAB PO SCH (07:34)
[2020-10-03] MEDS: MULTIVITAMIN TAB PO SCH (07:35)
[2020-10-03] MEDS: SPIRONOLACTONE 25 MG TAB PO SCH ×2 (07:35→17:04)
--- NOTE | 2020-10-03 10:27 | Gastroenterology Progress Note ---
Date of Service October 03, 2020 Assessment & Plan (1) Ascites: Continue spironolactone 75mg daily. In the past, when on spironolactone and not drinking had only minimal or no ascites. Present on Admission?: Yes (2) Alcohol abuse: Discussed importance of abstinence. Present on Admission?: Yes (3) Cirrhosis: Cirrhosis with alcoholic hepatitis. Recent bump in LFTs likely secondary to continuing to drink alcohol. DF 34 today and no evidence of infection. Will start prednisolone for tx of ETOH hepatitis: 40mg daily x 1 month. Will re- evaluate in OP GI clinic to taper. Present on Admission?: Yes Admission and Anticipated Discharge Date Admission Date: September 30, 2020 Supervising Physician Co-Signing Physician Notes I have seen and examined the patient and discussed the management with AYUSH Wright. Admitted for nausea - found to have new ascites after drinking alcohol. Known history of cirrhosis presumably from kylee/delcid. s/p 4 liter tap yesterday negative for sbp. Blood cultures negative PE significant for being oriented but sleep this morning, abd - soft though presence of ascitic fluid Ascitic fluid reviewed, radiology report reviewed from paracentesis Likely exacerbation of her underlying cirrhosis given recent eoth intake leading to ascites as she has had minimal ascites when seen last as an outpatient Given DF suggestive of mild alcoholic hepatitis- would recommend 28 day course of prednisolone Outpatient GI fup in 2-4 weeks. She should strongly consider alcohol rehab inpatient or outpatient. Subjective 44,female, ETOH cirrhosis with ascites, presented for enlarging abdomen. Most recent alcohol intake Friday09/30/20 (day of admission). 4L removed by paracentesis yesterday. No evidence of SBP: 196 neutrophils, 4% neutrophils. Urine Cx only with lactobacillus - often a vaginal contaminant. CXR normal. Prelim blood cx w/o growth. Pt feels well. Would like discharge. Review of Systems Review of Systems: ROS: Gen: Denies weakness, fevers, weight loss Eyes: No eye redness, or pain, no recent vision changes Resp: No SOB, no cough Cardio: No palpitations/irregular beats, no chest pain GI: No abdominal pain, no nausea/vomiting : Denies pain on urination Skin: No jaundice, itching or new rashes Physical Exam Constitutional: WD/WN, vitals as above + thin and cooperative Eyes: PERRL, conjunctivae normal, anicteric sclerae ENMT: external ear and nose normal, oropharynx normal Neck: trachea midline, no thyromegaly Respiratory: normal respiratory effort, lungs clear to auscultation Cardiovascular: RRR, no murmur, no edema Gastrointestinal (Abdomen): Percussion/Palpation: abdomen soft (mild ascites post tap); abdomen nontender Musculoskeletal: no cyanosis or clubbing, extremities motor strength 5/5 Skin: no rashes, warm and dry no jaundice Neurologic: PERRL, EOMI, accommodation nl, no face palsy, no dysarthria Psychiatric: A+Ox3, euthymic affect (easily able to carry a conversation; no problem with word finding today. ) Motor Behavior: n tremor Lymphatic: no cervical or axillary lymphadenopathy Results & Data ([facility]) Vital Signs (Past 12 Hours) Vital Signs Temp Pulse Pulse Resp BP Pulse Ox 10/03/20 07:49 36.4 C L 82 19 100/63 95 10/03/20 04:30 37.1 C 75 18 91/54 L 96 10/03/20 00:00 88 10/02/20 23:34 37.4 C 87 18 100/67 91
[2020-10-03] MEDS: prednisoLONE SYRUP 15 MG/5 ML BTL PO SCH (11:15)
[2020-10-03] MEDS: diphenhydrAMINE Capsule 25 MG CAP PO PRN (19:46)
[2020-10-03] MEDS: MELATONIN 3 MG TAB PO PRN (19:46)
--- NOTE | 2020-10-03 20:25 | Hospitalist Progress Note ---
Date of Service October 03, 2020 Assessment & Plan (1) Ascites: (2) Cirrhosis: (3) Fatty liver: -Hospital day 4 Per AYUSH Stauffer's notes: -patient presenting from home with reports of worsening abdominal distention -history of cirrhosis due to alcohol and fatty liver, s/p paracentesis 08/2018, history of alcohol hepatitis treated with steroids, EGD 07/2018 negative for varices -Had been sober until spring 2019 however started drinking again, 2 bottles wine/day; last drink on 09/29 -In the ED, CT ABD/pelvis showing moderate to large volume ascites -on admission LFTs support a mild alcohol hepatitis (T. Bili 4.6, AST 166, ALT 51, Alk Phos 145) however discriminant function 23, no indication for steroids at this time, MELD 21, INR 1.6 -LFTs remain stable -Spironolactone increased to 75 mg twice daily on day of admission, holding Lasix secondary to hypokalemia -GI consulted Status post paracentesis 10/02/2019 2124 L of ascites -Ammonia level 51-70 Lactulose started Positive BMs today -INR 2.0, platelet count 78 No signs of bleeding -Possible mild alcoholic hepatitis per GI Prednisolone 40 mg p.o. daily started -Blood cultures ordered to rule out underlying infection leading to hyperbilirubinemia Negative so far Follow-up blood culture results tomorrow 10/04/2020 -Patient significantly improved -Discharge plan: Follow-up final blood culture results drawn October 02 2020 Continue Aldactone 70 mg p.o. twice daily Lactulose 30 mg 3 times daily to make 2-3 bowel movements per day Prednisolone 40 mg daily x1 month-outpatient GI follow-up to taper Monitor LFTs, platelets and INR closely as an outpatient Follow-up with GI clinic in 2 weeks -Discussed alcohol abstinence Patient verbalized understanding and agreement (4) Alcohol abuse: -On alcohol withdrawal protocol with gabapentin -No signs of overt withdrawal Gabapentin taper to finish 10/04/2020 -Patient prefers outpatient support for alcohol cessation (5) Hypokalemia: (6) Hypomagnesemia: -Resolved after replacement (7) Thrombocytopenia: -Stable around 80s -Likely due to underlying liver disease -No signs of bleeding, monitor CBC closely as an outpatient (8) DVT prophylaxis: -SCDs due to thrombocytopenia (9) Discharge planning issues: -Case management following - provided patient with information for medical assistance, [facility], inpatient and outpatient alcohol rehab services -Plan to discharge tomorrow when medically stable, blood cultures negative Admission and Anticipated Discharge Date Admission Date: September 30, 2020 Subjective Follow-up for liver cirrhosis with ascites, alcohol withdrawal Seen sitting up in bed, comfortable, not in distress States that she feels much better overall today Denies abdominal pain, shortness of breath, nausea vomiting Tolerating diet well Denies tremors, anxiety, hallucinations or confusion No other symptoms Review of Systems Review of Systems: All systems reviewed & are unremarkable except as noted in Subjective Physical Exam Physical Exam: General- oriented x 3, not in distress, speaks in sentences with no effort or accessory muscle use Eyes- anicteric Neck- no JVD Lungs- clear breath sounds bilaterally, no rales/wheezes Heart- normal rate, regular rhythm; no murmurs Abdomen- normal bowel sounds, nondistended, soft, nontender Extremities- no pretibial edema, no calf tenderness Neuro- alert, oriented x 3; no gross focal neurologic deficits Skin- warm & dry Results & Data Results & Data ([facility]) Vital Signs (Past 12 Hours) Vital Signs Temp Pulse Resp BP Pulse Ox 10/03/20 19:18 36.6 C 90 18 106/71 96 10/03/20 15:22 36.8 C 81 17 92/57 L 94 10/03/20 11:37 36.8 C 95 H 18 103/71 99
[2020-10-04] MEDS ORDERED: GABAPENTIN 600 MG TAB PO SCH (06:00)
[2020-10-04] MEDS: FOLIC ACID 1 MG TAB PO SCH (08:46)
[2020-10-04] MEDS: CHOLECALCIFEROL 1,000 UNITS 25 MCG TAB PO SCH (08:46)
[2020-10-04] MEDS: VITAMIN B COMPLEX TAB PO SCH (08:46)
[2020-10-04] MEDS: MULTIVITAMIN TAB PO SCH (08:46)
[2020-10-04] MEDS: FLUoxetine HCL 20 MG CAP PO SCH (08:46)
[2020-10-04] MEDS: SPIRONOLACTONE 25 MG TAB PO SCH (08:46)
[2020-10-04] MEDS: THIAMINE HCL 100 MG TAB PO SCH (08:46)
[2020-10-04] MEDS: prednisoLONE SYRUP 15 MG/5 ML BTL PO SCH (08:47)
[2020-10-04] MEDS: LACTULOSE SYRUP 30 GM/45 ML UDP PO SCH (08:47)
--- NOTE | 2020-10-04 11:59 | Discharge Summary ---
Date of Service October 04, 2020 Admission HPI Per Admitting Provider 44-year-old female with PMH cirrhosis secondary to alcohol use and fatty liver, ascites, and other problems listed below who presents the ED for evaluation of worsening abdominal distention. Patient was diagnosed with cirrhosis due to alcohol use and fatty liver at the beginning of 2018. Patient underwent paracentesis that time for 7.8 L. Also had EGD that did not show any signs of varices. Patient reports that she quit drinking at that time and was sober until spring 2019. Patient reports she began drinking again during the lockdown due to COVID-19. She was also experiencing a lot of stressors with her job. Patient reports drinking 2 bottles of wine per day. She reports over the past 1 week, she has decreased that to 1 bottle. Over the past 2 weeks, patient notes increasing abdominal distention with acute worsening in the past 24 hours. She reports some mild shortness of breath. She has had a very poor appetite. Reports her abdomen feels tense however no abdominal pain. Denies vomiting and diarrhea. No fevers or chills. Denies chest pain. No lightheadedness, dizziness, diaphoresis, syncopal events. No urinary symptoms. In the ED, labs show K+ 2.7, MG +1.4, total bili 4.6, AST 166, ALT 51, alk phos 145. CT ABD/pelvis shows a moderate to large volume of abdominopelvic ascites. Patient received IV lorazepam, IV magnesium, IV potassium, IVF. Principal Diagnosis Liver cirrhosis with ascites Alcoholic hepatitis Elevated ammonia level Alcohol withdrawal Discharge Exam Constitutional WD/WN, vitals as above Eyes PERRL, conjunctivae normal, anicteric sclerae ENMT external ear and nose normal, oropharynx normal Neck trachea midline, no thyromegaly Respiratory normal respiratory effort, lungs clear to auscultation Cardiovascular RRR, no murmur, no edema Gastrointestinal (Abdomen) Percussion/Palpation: abdomen soft; abdomen nontender Skin no rashes, warm and dry Neurologic PERRL, EOMI, accommodation nl, no face palsy, no dysarthria Psychiatric A+Ox3, euthymic affect Discharge Data Allergies Allergy/AdvReac Type Severity Reaction Status Date / Time morphine AdvReac Severe Respiratory Verified 09/30/20 11:41 distress Consultations 09/30/20 16:43 Consult Case Management - Discharge Planning Routine Consult Gastroenterology Routine Ordered Studies 09/30/20 12:06 CT abd pelvis IV con only Stat 10/02/20 14:00 US paracentesis abd w/image Routine Hospital Course (1) Ascites: (2) Cirrhosis: (3) Fatty liver: -patient Admitted from home with reports of worsening abdominal distention -history of cirrhosis due to alcohol and fatty liver, s/p paracentesis 08/2018, history of alcohol hepatitis treated with steroids, EGD 07/2018 negative for varices -Had been sober until spring 2019 however started drinking again, 2 bottles wine/day; last drink on 09/29 -In the ED, CT ABD/pelvis showing moderate to large volume ascites -on admission LFTs support a mild alcohol hepatitis (T. Bili 4.6, AST 166, ALT 51, Alk Phos 145) however discriminant function 23, no indication for steroids at this time, MELD 21, INR 1.6 -LFTs remain stable -Spironolactone increased to 75 mg twice daily -GI consulted Status post paracentesis 10/02/2019 -Ammonia level 51-70 Lactulose started -INR 2.0, platelet count 78-auto anticoagulated secondary to alcoholic liver disease/alcoholic hepatitis No signs of bleeding -Per GI alcoholic hepatitis Prednisolone 40 mg p.o. daily started-continued for 1 month Follow-up with gastroenterology -Blood cultures ordered to rule out underlying infection leading to hyperbilirubinemia Negative growth -Patient significantly improved Will to be discharged home today Continue Aldactone 70 mg p.o. twice daily Lactulose 30 mg 3 times daily to make 2-3 bowel movements per day Prednisolone 40 mg daily x1 month-outpatient GI follow-up to taper Monitor LFTs, platelets and INR closely as an outpatient Follow-up with GI clinic in 2 weeks -Discussed alcohol abstinence Patient verbalized understanding and agreement (4) Alcohol abuse: -On alcohol withdrawal protocol with gabapentin -No signs of overt withdrawal Gabapentin taper to finish 10/04/2020 -Patient prefers outpatient support for alcohol cessation (5) Hypokalemia: (6) Hypomagnesemia: -Resolved after replacement (7) Thrombocytopenia: -Stable around 80s -Likely due to underlying liver disease -No signs of bleeding, monitor CBC closely as an outpatient (8) DVT prophylaxis: -SCDs due to thrombocytopenia (9) Discharge planning issues: Stable to be discharged home today Total Time Total Time Spent Total Time Spent (In Minutes): 35 minutes Total Time Includes: Discharge Planning and Medication Reconciliation Discharge Plan Discharge Items Patient Disposition: Home - Self-Care Reason For Visit: ASCITES Discharge Diagnosis: Liver cirrhosis with ascites Alcoholic hepatitis Elevated ammonia level Alcohol withdrawal Activity: Resume your previous activity Activity Comment: Gradually increase as tolerated Driving/Machine Use: No driving if you are feeling drowsy or confused Non-emergency contact: Primary Care Provider Call non-emergency contact if: you have any medication questions, your symptoms worsen, your pain is not controlled, your pain is worsening, your pain is unusual for you, your pain is concerning for you and you have a fever Follow-up/Referrals: Shakira Connell MD [Hospitalist] - 10/19/20 8:00 am (Please follow up with Dr. Connell on 10/19/20 at 8:00 am. Please arrive to the office at 7:45 am for your appointment. If you are unable to keep this appointment, please call the office to reschedule at [phone].) Diet: Low Sodium (2gm) Addtl Attending Provider Instructions: Please review your new medication list and follow instructions carefully. Your new medications include: Prednisolone-steroid for alcohol hepatitis x4 weeks To be tapered after per instructions by semaphore operator on follow-up Aldactone-increased to 75 mg p.o. twice a day Diuretic to prevent fluid buildup in the abdomen Lactulose-stool softener to prevent ammonia elevation No alcohol or smoking. Follow up with [facility] ( [facility] Medicine ) to establish care Please take all medications as instructed on discharge list below. It is recommended that you follow-up wtih your primary care physician within 1-2 weeks of hospital discharge to ensure you are still doing well. Please call if you have any questions or problems. You can reach a [facility] hospitalist on duty at [facility] 24 hours a day by calling Return to the ER immediately if with worsening of symptoms, including Abdominal distention, abdominal pain, nausea vomiting, yellowing of the eyes or skin, brown urine, leg swelling, Tremors, anxiety, sweats, confusion. Follow-up with [facility] semaphore operator in 2 weeks. It is very important that you follow-up closely with your primary care physician, semaphore operator, and establish with an alcohol cessation program. Pending Studies at Discharge: Yes Studies:: Repeat blood work including CBC, basic metabolic profile, magnesium, LFTs, INR and follow-up with your primary care physician next week Stand-Alone Forms: My [facility], Smoking Cessation Medications and DC Order Prescriptions: New spironolactone 25 mg Tablet 75 mg PO [id number] Qty: 180 RF: 0 diphenhydramine HCl [Benadryl] 25 mg Capsule 25 mg PO HS PRN (Reason: insomnia) Qty: 10 RF: 0 prednisolone 15 mg/5 mL Solution 40 mg PO DAILY Qty: 400 RF: 0 lactulose 20 gram/30 mL Solution 45 ml PO TID Qty: 3000 RF: 2 thiamine HCl (vitamin B1) [Vitamin B-1] 100 mg Tablet 100 mg PO QAM Qty: 7 RF: 0 folic acid 1 mg Tablet 1 mg PO QAM Qty: 7 RF: 0 multivitamin Tablet 1 tab PO DAILY Qty: 90 RF: 0 Continued minocycline 50 mg Capsule 50 mg PO DAILY RF: 0 fluoxetine 20 mg Capsule 20 mg PO DAILY RF: 0 cholecalciferol (vitamin D3) 25 mcg (1,000 unit) Tablet 25 mcg PO DAILY RF: 0 melatonin 5 mg Tablet,Chewable 5 mg PO HS PRN (Reason: Insomnia) RF: 0 multivitamin Tablet 1 tab PO DAILY RF: 0 hydroxyzine HCl 50 mg Tablet 50 mg PO Q6H PRN (Reason: Anxiety) RF: 0 vitamin B complex Tablet 1 tab PO DAILY RF: 0 Discontinued furosemide 20 mg Tablet 20 mg PO BID RF: 0 spironolactone 50 mg Tablet 50 mg PO BID RF: 0 potassium gluconate 595 mg (99 mg) Tablet 595 mg PO BID RF: 0 Discharge Orders: Discharge Order (Routine); Ordered 10/04/20 Ordered By: Harmoyn Perea Admission Data Admit Date/Time: 09/30/20 16:35 Attending Provider: Harmony Perea Admit Provider: Jairon Sawyer Primary Care Provider: Austen Bear Other Providers: Ajay Hunt ; Jairon Sawyer Other Interventions: Discharge Summary Assessment (RN) Last Done: 10/04/20 12:54
== END 2020-10-04 12:55 | disposition home or self-care (01) | DRG 433 ==
LOC: ED 10:45 → 2S 16:13 → SUATTDRO 16:35 → 2S 16:35

== ENCOUNTER 2021-05-14 10:27 | Inpatient (IN) ==
--- NOTE | 2021-05-14 11:47 | Emergency Department Note ---
Impression & Plan Alcoholic hepatitis, Hypokalemia, Hyponatremia, Alcohol abuse, Hyperbilirubinemia ED Provider Note NAME: VICENTE DE LA CRUZ AGE: 45 SEX: F : 1975 ARRIVES VIA: Walk-In INFORMANT: Patient, ED PROVIDER(S): Gonzalez Haynes MD Chief Complaint: Shortness of breath, jaundice HPI: Patient does present with concern for worsening shortness of breath which is ongoing for approximately 2 to 3 days. The patient is a chronic alcoholic and states that she used to drink a fair amount more but is currently down to 1 glass of wine per day. Patient has noticed a discoloring and yellowing of the skin and whites of her eyes. This is probably occurred over the last 48 hours. The patient had consulted with her PCP and liquid yeast supervisor who referred her for further evaluation and treatment. The patient thinks that she might require a paracentesis. The patient denies any abdominal pain. Patient has had nausea but without vomiting. The patient has had loose stools. The patient denies any fevers or chills. Patient is vaccinated for Covid. The patient denies any productive cough. Patient is no history of DVT PE or PE. ROS: See HPI for pertinent positives and negatives. A total of 10 systems were reviewed and otherwise negative. Past medical history: See below Surgical history: See below Social history: See below Physical Exam: GENERAL: Mildly ill in appearance, NAD, wearing glasses, wearing a mask, non- toxic. EYE EXAM: Scleral icterus noted. PERRL, no anisocoria and EOM's grossly intact w/o pain. NECK: Supple, no nuchal rigidity, no adenopathy, non-tender. No signs of meningismus. LUNGS: Clear to auscultation. Normal chest wall mechanics. HEART: NSR, no MRG. ABDOMEN: Abdomen soft, non-tender, normo-active bowel sounds, no masses, no rebound or guarding. BACK: No CVA TTP. SKIN: Telangiectasias noted over the anterior chest. Jaundice noted. UPPER EXTREMITIES: Upper extremities are grossly normal. Mildly tremulous. LOWER EXTREMITIES: Grossly normal, no edema. Negative Homans' sign bilaterally. NEURO EXAM: A&O x3, cranial nerves II-XII grossly intact, normal speech, moves all 4 extremities on command w/o issue. Differential diagnoses: Infection, dehydration, metabolic abnormality, hypo/hyperglycemia, electrolyte disturbance, anemia, hypoxia, cardiac sources, intracerebral event, toxicologic, neurologic, as well as other pathologies. Course: Patient was seen and evaluated the bedside. Full history physical exam was performed. EKG interpreted by me Normal sinus rhythm, rate of 78, normal NC and QRS, prolonged QT, normal axis. Imaging Studies: See Below Cardiac monitoring: An order was placed for continuous cardiac monitoring. The monitor shows a rate of 82 with sinus rhythm. MDM: Patient did present with concern for shortness of breath. Blood work was obtain ed along with a Covid swab and chest x-ray. EKG also obtained. Patient was given some amount of Ativan. Patient is white count of 17 with hemoglobin 9.5 this is at virtual baseline. The patient's platelet count is unremarkable. Coagulation studies are abnormal. The patient has hyponatremia hypokalemia and hypocalcemia. Patient did receive IV fluids as well as calcium replacement. The patient may have concomitant UTI as she is undergoing treatment. The patient did receive Rocephin. Ammonia and alcohol are negative. Troponin not detectable. He do not believe the patient requires a paracentesis at this time. The patient is not distended in the abdomen and is not peritonitic. Believe SBP to be less likely. Rocephin would provided appropriate coverage for this though for the treatment of her UTI. Past Med/Surg History Medical History Alcohol abuse Anemia due to vitamin B12 deficiency Anemia, iron deficiency Ascites Cirrhosis Depression with anxiety Fatty liver History of alcoholic hepatitis Surgical History H/O: hysterectomy Hx of gastric bypass Micheal-en-Y Family History Father Heart disease Social History Smoking Status: Current every day smoker Tobacco Type: E-cigarettes / Vaping Second Hand Exposure: Yes; Do You Dip or Chew Tobacco: No; Tobacco Cessation Education Requested by Patient: No Hx Alcohol Use: Yes Alcohol type: wine and hard liquor Alcohol Intake Frequency: 4 or More x per/Week Alcohol Intake Frequency Comment: 1 bottle wine/day Hx Substance Use: No Preferred Language: Burkinan Communication Ability: Effective Staking Technician Required: Yes Beliefs That Will Affect Care: None Current Living Situation: Significant Other Other Information That Helps Us Care for You: No Feels Safe at Home: Yes Safety Concerns: Feels Safe At This Time Assistive Devices: Glasses Allergies Allergies Allergy/AdvReac Type Severity Reaction Status Date / Time morphine AdvReac Severe Respiratory Verified 05/14/21 13:01 distress Home Meds Home Medications Medication Instructions Recorded Confirmed cholecalciferol (vitamin D3) 25 25 mcg PO DAILY 09/30/20 05/14/21 mcg (1,000 unit) tablet hydroxyzine HCl 50 mg tablet 50 mg PO Q6H PRN 09/30/20 05/14/21 vitamin B complex 1 tab PO DAILY 09/30/20 05/14/21 calcium carbonate 600 mg (1,500 1 tab PO DAILY 05/14/21 05/14/21 mg)-vitamin D3 200 unit tablet furosemide 20 mg tablet 20 mg PO BID 05/14/21 05/14/21 potassium chloride 20 mEq 20 meq PO DAILY 05/14/21 05/14/21 tablet,extended release sertraline 50 mg tablet 100 mg PO DAILY 05/14/21 05/14/21 trazodone 50 mg tablet 50 mg PO HS PRN 05/14/21 05/14/21 Previous Rx's Medication Instructions Recorded multivitamin 1 tab PO DAILY #90 tab 10/03/20 spironolactone 25 mg tablet 75 mg PO BID17 #180 tab 10/03/20 Results & Data (ED) Vital Signs Vital Signs - 24 hr 05/14/21 11:25 05/14/21 11:28 05/14/21 11:52 Temperature 36.7 C Temperature Source Temporal Artery Scan Pulse Rate 103 H 81 Pulse Rate [Apical] 77 Pulse Rate from SpO2 Sensor 82 Pulse Rhythm [Apical] Regular Pulse Strength [Apical] Normal Respiratory Rate 16 16 12 Respiratory Effort / Characteristics Non-Labored Respiratory Depth Normal Blood Pressure 97/61 L Blood Pressure [Right Arm] 108/66 Blood Pressure Mean 73 Blood Pressure Mean [Right Arm] 80 Blood Pressure Position [Right Arm] Lying Pulse Oximetry 98 95 96 Oxygen Delivery Method Room Air Sepsis Recent Fever Within 48 Hours No Sepsis New/Unexplained Change in Mental Status No Sepsis Action Taken by Nursing Physician Notified 05/14/21 12:00 Temperature Temperature Source Pulse Rate Pulse Rate [Apical] Pulse Rate from SpO2 Sensor Pulse Rhythm [Apical] Pulse Strength [Apical] Respiratory Rate Respiratory Effort / Characteristics Respiratory Depth Blood Pressure Blood Pressure [Right Arm] Blood Pressure Mean Blood Pressure Mean [Right Arm] Blood Pressure Position [Right Arm] Pulse Oximetry 98 Oxygen Delivery Method Room Air Sepsis Recent Fever Within 48 Hours Sepsis New/Unexplained Change in Mental Status Sepsis Action Taken by Skilled Nursing Medications Current Medication List: was personally reviewed by me Laboratory Data Attestation: I reviewed the patient's lab results. Result diagrams: 05/14/21 12:00 05/14/21 12:00 Lab Results 05/14/21 05/14/21 05/14/21 Range/Units 12:00 12:00 12:00 WBC 17.39 H (4.8-10.8) K/uL RBC 2.61 L (4.2-5.4) M/uL Hgb 9.5 L (12.0-16.0) g/dL Hct 26.5 L (37-47) % MCV 101.5 H (80-100) fL MCH 36.4 H (25-34) pg MCHC 35.8 (32-36) g/dL RDW Std Deviation 60.9 H (36.4-46.3) fL RDW Coeff of Deja 16.6 H (11.5-14.5) % Plt Count 156 (130-400) K/uL MPV 9.1 (7.4-10.4) fL Immature Gran % (Auto) 1.2 % Neut % (Auto) 81.2 % Lymph % (Auto) 6.6 % [place] % (Auto) 10.2 % Eos % (Auto) 0.5 % Baso % (Auto) 0.3 % Neut # (Auto) 14.14 H (1.4-6.5) K/uL Lymph # (Auto) 1.14 L (1.2-3.4) K/uL [place] # (Auto) 1.78 H (0.11-0.59) K/uL Eos # (Auto) 0.08 (0-0.5) K/uL Baso # (Auto) 0.05 (0-0.2) K/uL Immature Gran # (Auto) 0.20 H (0.00-0.02) K/uL PT 19.3 H (9.0-12.0) Seconds INR 2.0 H (0.9-1.1) APTT 34.7 H (21.0-31.0) Seconds PTT Ratio 1.3 Sodium 123 L (136-145) mmol/L Potassium 2.9 L (3.5-5.1) mmol/L Chloride 88 L (98-107) mmol/L Carbon Dioxide 27 (21-32) mmol/L Anion Gap 8.0 (3-11) BUN 24 H (7-18) mg/dl Creatinine 1.51 H (0.6-1.2) mg/dl Est Cr Clr Drug Dosing 45.8 ml/min Est GFR ( Amer) 47.9 ml/min Est GFR (Non-Af Amer) 41.3 ml/min BUN/Creatinine Ratio 15.6 (10-20) Glucose 94 (70-99) mg/dl Calcium 8.1 L (8.5-10.1) mg/dl Magnesium 1.9 (1.8-2.4) mg/dl Total Bilirubin 16.7 H (0.2-1) mg/dl AST 178 H (15-37) U/L ALT 77 (12-78) U/L Alkaline Phosphatase 117 (45-117) U/L Ammonia (11-32) umol/L Troponin I < 0.015 (0-0.045) ng/ml Total Protein 7.4 (6.4-8.2) gm/dl Albumin 1.7 L (3.4-5.0) gm/dl Globulin 5.7 H (2.5-4.0) gm/dl Albumin/Globulin Ratio 0.3 L (0.9-2) TSH 2.820 (0.300-4.500) uIu/ml Specimen Hemolysis Urine Color Urine Appearance (Clear) Urine pH (4.5-7.5) Ur Specific [place] (1.000-1.030) Urine Protein (Negative) Urine Glucose (UA) (Negative) Urine Ketones (Negative) Urine Blood (Negative) Urine Nitrite (Negative) Urine Bilirubin (Negative) Urine Urobilinogen (Negative) Ur Leukocyte Esterase (Negative) Urine WBC (Auto) (0-5) /hpf Urine RBC (Auto) (0-4) /hpf U Hyaline Cast (Auto) (0-5) /lpf U Epithel Cells (Auto) (0-5) /lpf Urine Bacteria (Auto) (Negative) Urine Yeast Ethyl Alcohol mg/dL (0-3) mg/dl COVID-19 Eval Order SARS-CoV-2 (PCR) (Negative) 05/14/21 05/14/21 05/14/21 Range/Units 12:00 12:00 12:00 WBC (4.8-10.8) K/uL RBC (4.2-5.4) M/uL Hgb (12.0-16.0) g/dL Hct (37-47) % MCV (80-100) fL MCH (25-34) pg MCHC (32-36) g/dL RDW Std Deviation (36.4-46.3) fL RDW Coeff of Deja (11.5-14.5) % Plt Count (130-400) K/uL MPV (7.4-10.4) fL Immature Gran % (Auto) % Neut % (Auto) % Lymph % (Auto) % [place] % (Auto) % Eos % (Auto) % Baso % (Auto) % Neut # (Auto) (1.4-6.5) K/uL Lymph # (Auto) (1.2-3.4) K/uL [place] # (Auto) (0.11-0.59) K/uL Eos # (Auto) (0-0.5) K/uL Baso # (Auto) (0-0.2) K/uL Immature Gran # (Auto) (0.00-0.02) K/uL PT (9.0-12.0) Seconds INR (0.9-1.1) APTT (21.0-31.0) Seconds PTT Ratio Sodium (136-145) mmol/L Potassium (3.5-5.1) mmol/L Chloride (98-107) mmol/L Carbon Dioxide (21-32) mmol/L Anion Gap (3-11) BUN (7-18) mg/dl Creatinine (0.6-1.2) mg/dl Est Cr Clr Drug Dosing ml/min Est GFR ( Amer) ml/min Est GFR (Non-Af Amer) ml/min BUN/Creatinine Ratio (10-20) Glucose (70-99) mg/dl Calcium (8.5-10.1) mg/dl Magnesium (1.8-2.4) mg/dl Total Bilirubin (0.2-1) mg/dl AST (15-37) U/L ALT (12-78) U/L Alkaline Phosphatase (45-117) U/L Ammonia (11-32) umol/L Troponin I (0-0.045) ng/ml Total Protein (6.4-8.2) gm/dl Albumin (3.4-5.0) gm/dl Globulin (2.5-4.0) gm/dl Albumin/Globulin Ratio (0.9-2) TSH (0.300-4.500) uIu/ml Specimen Hemolysis Urine Color [place] Urine Appearance Cloudy A (Clear) Urine pH 5.0 (4.5-7.5) Ur Specific [place] 1.017 (1.000-1.030) Urine Protein Negative (Negative) Urine Glucose (UA) Negative (Negative) Urine Ketones Negative (Negative) Urine Blood Trace H (Negative) Urine Nitrite Positive A (Negative) Urine Bilirubin 3+ H (Negative) Urine Urobilinogen Negative (Negative) Ur Leukocyte Esterase 2+ H (Negative) Urine WBC (Auto) 10-30 H (0-5) /hpf Urine RBC (Auto) 0-4 (0-4) /hpf U Hyaline Cast (Auto) 1-5 (0-5) /lpf U Epithel Cells (Auto) >30 H (0-5) /lpf Urine Bacteria (Auto) 1+ H (Negative) Urine Yeast Not Reportable Ethyl Alcohol mg/dL (0-3) mg/dl COVID-19 Eval Order Covid19 at [facility] SARS-CoV-2 (PCR) NEGATIVE (Negative) 05/14/21 05/14/21 Range/Units 12:18 12:18 WBC (4.8-10.8) K/uL RBC (4.2-5.4) M/uL Hgb (12.0-16.0) g/dL Hct (37-47) % MCV (80-100) fL MCH (25-34) pg MCHC (32-36) g/dL RDW Std Deviation (36.4-46.3) fL RDW Coeff of Deja (11.5-14.5) % Plt Count (130-400) K/uL MPV (7.4-10.4) fL Immature Gran % (Auto) % Neut % (Auto) % Lymph % (Auto) % [place] % (Auto) % Eos % (Auto) % Baso % (Auto) % Neut # (Auto) (1.4-6.5) K/uL Lymph # (Auto) (1.2-3.4) K/uL [place] # (Auto) (0.11-0.59) K/uL Eos # (Auto) (0-0.5) K/uL Baso # (Auto) (0-0.2) K/uL Immature Gran # (Auto) (0.00-0.02) K/uL PT (9.0-12.0) Seconds INR (0.9-1.1) APTT (21.0-31.0) Seconds PTT Ratio Sodium (136-145) mmol/L Potassium (3.5-5.1) mmol/L Chloride (98-107) mmol/L Carbon Dioxide (21-32) mmol/L Anion Gap (3-11) BUN (7-18) mg/dl Creatinine (0.6-1.2) mg/dl Est Cr Clr Drug Dosing ml/min Est GFR ( Amer) ml/min Est GFR (Non-Af Amer) ml/min BUN/Creatinine Ratio (10-20) Glucose (70-99) mg/dl Calcium (8.5-10.1) mg/dl Magnesium (1.8-2.4) mg/dl Total Bilirubin (0.2-1) mg/dl AST (15-37) U/L ALT (12-78) U/L Alkaline Phosphatase (45-117) U/L Ammonia < 10.0 L (11-32) umol/L Troponin I (0-0.045) ng/ml Total Protein (6.4-8.2) gm/dl Albumin (3.4-5.0) gm/dl Globulin (2.5-4.0) gm/dl Albumin/Globulin Ratio (0.9-2) TSH (0.300-4.500) uIu/ml Specimen Hemolysis Urine Color Urine Appearance (Clear) Urine pH (4.5-7.5) Ur Specific [place] (1.000-1.030) Urine Protein (Negative) Urine Glucose (UA) (Negative) Urine Ketones (Negative) Urine Blood (Negative) Urine Nitrite (Negative) Urine Bilirubin (Negative) Urine Urobilinogen (Negative) Ur Leukocyte Esterase (Negative) Urine WBC (Auto) (0-5) /hpf Urine RBC (Auto) (0-4) /hpf U Hyaline Cast (Auto) (0-5) /lpf U Epithel Cells (Auto) (0-5) /lpf Urine Bacteria (Auto) (Negative) Urine Yeast Ethyl Alcohol mg/dL < 3.0 (0-3) mg/dl COVID-19 Eval Order SARS-CoV-2 (PCR) (Negative) Administered Medications Folic Acid (Folic Acid 1 Mg Tab) 1 mg PO QAM [facility] Stop: 06/13/21 16:38 Last Admin: 05/14/21 17:37 Dose: 1 mg Documented by: [id number] Thiamine HCl (Thiamine Hcl 100 Mg Tab) [facility] Stop: 06/13/21 16:38 Last Admin: 05/14/21 17:37 Dose: 100 mg Documented by: [id number] Discontinued Medications Calcium Carbonate (Calcium Carbonate 500 Mg Chewable Tab) 1,500 mg PO NOW STA Stop: 05/14/21 13:25 Last Admin: 05/14/21 14:46 Dose: 1,500 mg Documented by: [id number] Calcium Carbonate (Calcium Carbonate 500 Mg Chewable Tab) Confirm Administered Dose 1,500 mg .ROUTE .STK-MED ONE Stop: 05/14/21 14:46 Last Admin: 05/14/21 14:46 Dose: 1,500 mg Documented by: [id number] Lorazepam (Ativan) 0.5 mg in 1 mls @ 1 mls/min IV NOW STA Stop: 05/14/21 12:07 Last Admin: 05/14/21 12:14 Dose: 1 mls/min Documented by: [id number] Ceftriaxone Sodium (Rocephin) 2,000 mg in 70 mls @ 140 mls/hr IV NOW STA Stop: 05/14/21 13:53 Last Infusion: 05/14/21 14:30 Dose: 140 mls/hr Documented by: [id number] Admin: 05/14/21 14:00 Dose: 140 mls/hr Documented by: [id number] Calcium Gluconate () 1,000 mg in 60 mls @ 240 mls/hr IV NOW STA Stop: 05/14/21 13:39 Last Infusion: 05/14/21 14:03 Dose: 240 mls/hr Documented by: [id number] Admin: 05/14/21 13:48 Dose: 240 mls/hr Documented by: [id number] Influenza Virus Vaccine Quadrival (Fluarix Quadrivalent 0.5 Ml Syr) 0.5 ml IM .ONCE ONE Stop: 05/14/21 17:31 Last Admin: 05/14/21 17:37 Dose: 0.5 ml Documented by: [id number] Potassium Chloride (Potassium Chloride Crtab 20 Meq Tabcr) 40 meq PO NOW STA Stop: 05/14/21 15:41 Last Admin: 05/14/21 16:19 Dose: 40 meq Documented by: [id number] Imaging Data Radiologist's Impression: Chest X-Ray 05/14/21 12:04 XR chest 1V portable HISTORY: 45 years-old Female weakness acute weakness COMPARISON: Chest radiograph 09/30/2020 TECHNIQUE: Portable AP view of the chest FINDINGS: Cardiomediastinal and hilar silhouettes are unchanged. Mild linear subsegmental bibasilar densities appear stable. No pneumothorax, pleural effusion or overt pulmonary edema. No acute fracture IMPRESSION: Unchanged subsegmental bibasilar atelectasis. ACT 112: Negative or not required by law. The above report was generated using voice recognition software. It may contain grammatical, syntax or spelling errors. Electronically signed by: Jeremiah Acotsa M.D. 05/14/2021 12:16 PM Discharge Plan Visit Data Chief Complaint: Shortness of Breath/Dyspnea Stated Complaint: ASCITES,SOB,FATIGUE,YELLOWING SKIN/EYES ED Provider: Gonzalez Haynes Discharge Problem: Alcoholic hepatitis, Hypokalemia, Hyponatremia, Alcohol abuse, Hyperbi lirubinemia Patient Disposition: Admitted As Inpatient Discharge Instructions Interventions: ED Discharge Assessment Last Done: 05/14/21 16:18
[2021-05-14] MEDS ORDERED: LORazepam 0.5 MG/1 ML VIAL IV STA (12:06)
[2021-05-14 12:12] LABS: Basophils # (auto) 0.05 K/uL (0-0.2); Basophils % (auto) 0.3 %; Eosinophils # (auto) 0.08 K/uL (0-0.5); Eosinophils % (auto) 0.5 %; Hematocrit (blood only) 26.5 % (37-47); Hemoglobin 9.5 g/dL (12.0-16.0); Immature Granulocytes % (auto) 1.2 %; Lymphocytes # (auto) 1.14 K/uL (1.2-3.4); Lymphocytes % (auto) 6.6 %; Mean Corpuscular Hemoglobin 36.4 pg (25-34); Mean Corpuscular Hgb Conc 35.8 g/dL (32-36); Mean Corpuscular Volume 101.5 fL (80-100); Mean Platelet Volume 9.1 fL (7.4-10.4); Monocytes # (auto) 1.78 K/uL (0.11-0.59); Monocytes % (auto) 10.2 %; Neutrophils # (auto) 14.14 K/uL (1.4-6.5); Neutrophils % (auto) 81.2 %; Platelet Count 156 K/uL (130-400); RDW Coefficient of Variation 16.6 % (11.5-14.5); RDW Standard Deviation 60.9 fL (36.4-46.3); Red Blood Count 2.61 M/uL (4.2-5.4); White Blood Count 17.39 K/uL (4.8-10.8)
--- NOTE | 2021-05-14 12:17 | XRay Report ---
XR chest 1V portable HISTORY: 45 years-old Female weakness acute weakness COMPARISON: Chest radiograph 09/30/2020 TECHNIQUE: Portable AP view of the chest FINDINGS: Cardiomediastinal and hilar silhouettes are unchanged. Mild linear subsegmental bibasilar densities a ppear stable. No pneumothorax, pleural effusion or overt pulmonary edema. No acute fracture IMPRESSION: Unchanged subsegmental bibasilar atelectasis. ACT 112: Negative or not required by law. The above report was generated using voice recognition software. It may contain grammatical, syntax o r spelling errors. Electronically signed by: Jeremiah Acosta M.D. 05/14/2021 12:16 PM
[2021-05-14 12:26] LABS: Partial Thromboplastin Ratio 1.3; Partial Thromboplastin Time 34.7 Seconds (21.0-31.0); Prothrombin Time 19.3 Seconds (9.0-12.0)
[2021-05-14 12:34] LABS: Appearance Urine Cloudy (Clear); Bacteria Urine Automated 1+ (Negative); Blood Urine Trace (Negative); Color Urine Orange; Epithelial Cell Urine Auto >30 /lpf (0-5); Glucose Urine UA Negative (Negative); Ketones Urine Negative (Negative); Leukocyte Esterase Urine 2+ (Negative); Nitrite Urine Positive (Negative); Protein Urine Negative (Negative); Specific Gravity Urine 1.017 (1.000-1.030); Urobilinogen Urine Negative (Negative)
[2021-05-14 12:35] LABS: Alanine Aminotransferase 77 U/L (12-78); Albumin Level 1.7 gm/dl (3.4-5.0); Aspartate Aminotransferase 178 U/L (15-37); BUN Creatinine Ratio 15.6 (10-20); Blood Urea Nitrogen 24 mg/dl (7-18); Calcium 8.1 mg/dl (8.5-10.1); Carbon Dioxide 27 mmol/L (21-32); Chloride 88 mmol/L (98-107); Creatinine Clr Calc Pharmacy 45.8 ml/min; Est GFR (African American) 47.9 ml/min; Est GFR (Non-African American) 41.3 ml/min; Glucose 94 mg/dl (70-99); Magnesium 1.9 mg/dl (1.8-2.4); Potassium 2.9 mmol/L (3.5-5.1); Sodium 123 mmol/L (136-145)
[2021-05-14 12:36] LABS: Bilirubin Urine 3+ (Negative)
[2021-05-14 12:46] LABS: Albumin Globulin Ratio 0.3 (0.9-2); Alkaline Phosphatase 117 U/L (45-117); Bilirubin,Total 16.7 mg/dl (0.2-1); Globulin 5.7 gm/dl (2.5-4.0); Total Protein 7.4 gm/dl (6.4-8.2); Troponin I < 0.015 ng/ml (0-0.045)
[2021-05-14 12:52] LABS: RBC Urine Automated 0-4 /hpf (0-4)
[2021-05-14] MEDS ORDERED: CALCIUM CARBONATE 500 MG CHEWABLE TAB PO STA (13:24)
[2021-05-14] MEDS ORDERED: cefTRIAXone SODIUM 2,000 MG/70 ML BAG IV STA (13:24)
[2021-05-14] MEDS ORDERED: CALCIUM GLUCONATE 1,000 MG/60 ML BAG IV STA (13:25)
[2021-05-14] MEDS ORDERED: CALCIUM CARBONATE 500 MG CHEWABLE TAB ONE (14:45)
--- NOTE | 2021-05-14 14:53 | History & Physical Report ---
Date of Service May 14, 2021 Assessment & Plan (1) Alcoholic hepatitis: (2) Alcohol abuse: (3) Cirrhosis: (4) Hypokalemia: (5) Hyponatremia: Plan: Spoke with GI specialist, who are consulted - will need to rule out infection before potentially starting steroids. Blood and urine cultures pending. Will check limited abdominal U/S for ascites - Continue empiric ceftriaxone for now - Follow labs daily - Hold diuretics due to MASSIMO - Replete electrolytes - Alcohol withdrawal at-risk protocol (Ativan) Pt seen and reviewed with attending physician Dr. Garvey. Plan of care discussed and as outlined above. DVT Prophylaxis: SCDs Code Status: Full Code Tommy Will PA-C History of Present Illness Chief Complaint: Progressive weakness, shortness of breath, and yellowing of the skin Primary Care Provider: Austen Bear DO This is a 45 y/o female with a history of EtOH cirrhosis with ongoing EtOH use, ascites, prior alcoholic hepatitis, multifactorial anemia (B12 and iron deficiency), depression, prior gastric bypass, and malnutrition who presents to the ED today with progressive weakness, fatigue, JIN, and yellowing of her skin for the past 2-3 weeks. Pt reports that she noticed increasing abdominal distention around Labor Day that has worsened since then despite taking her diuretics as directed. On 05/03, she was seen by her PCP for dysuria and diagnosed with a UTI that was treated with Bactrim x 7 days. That evening she developed a fever with associated chills and a Tmax of 100.8F that was present intermittently x 5 days before it seemed to "break." The dysuria has since resolved. About a week ago, she developed nasal congestion, ear fullness, and headache but this has also since resolved. However, she continues to note increased dyspnea, specifically on exertion. She reports that she has to stop multiple times walking up the steps and is unable to carry anything. Even getti ng up to go to the bathroom will now leave her winded. She also notes increased fatigue and generalized weakness with multiple falls. Some residual back pain related to a fall on Labor Day when she lost her balance and fell down two steps, landing on her back. Not eating much because of the weakness (unable to prepare her own food) but reports that she is hungry. Has noted nausea and dry heaves but denies vomiting. Having loose stools with incontinence at times but denies melena or hematochezia. Has noted yellowing of her skin and eyes for the past two weeks, which is also worsening. Associated dark urine. History of alcohol abuse - reports that she stopped drinking whiskey about a month ago. She is currently drinking one single serve bottle of wine daily - last drink was two days ago. Denies any symptoms of withdrawal at present. Denies prior alcohol-withdrawal seizure. Allergies Allergy/AdvReac Type Severity Reaction Status Date / Time morphine AdvReac Severe Respiratory Verified 05/14/21 13:01 distress Home Medications Medication Instructions Recorded Confirmed Type cholecalciferol (vitamin D3) 25 25 mcg PO DAILY 09/30/20 05/14/21 History mcg (1,000 unit) tablet hydroxyzine HCl 50 mg tablet 50 mg PO Q6H PRN 09/30/20 05/14/21 History vitamin B complex 1 tab PO DAILY 09/30/20 05/14/21 History multivitamin 1 tab PO DAILY #90 tab 10/03/20 05/14/21 Rx spironolactone 25 mg tablet 75 mg PO BID17 #180 tab 10/03/20 05/14/21 Rx calcium carbonate 600 mg (1,500 1 tab PO DAILY 05/14/21 05/14/21 History mg)-vitamin D3 200 unit tablet furosemide 20 mg tablet 20 mg PO BID 05/14/21 05/14/21 History potassium chloride 20 mEq 20 meq PO DAILY 05/14/21 05/14/21 History tablet,extended release sertraline 50 mg tablet 100 mg PO DAILY 05/14/21 05/14/21 History trazodone 50 mg tablet 50 mg PO HS PRN 05/14/21 05/14/21 History Past Med/Surg History Medical History Alcohol abuse Anemia due to vitamin B12 deficiency Anemia, iron deficiency Ascites Cirrhosis Depression with anxiety Fatty liver History of alcoholic hepatitis Surgical History H/O: hysterectomy Hx of gastric bypass Micheal-en-Y Family History Father Heart disease Social History Smoking Status: Current every day smoker Tobacco Type: E-cigarettes / Vaping Second Hand Exposure: Yes; Do You Dip or Chew Tobacco: No; Tobacco Cessation Education Requested by Patient: No Hx Alcohol Use: Yes Alcohol type: wine and hard liquor Alcohol Intake Frequency: 4 or More x per/Week Alcohol Intake Frequency Comment: 1 bottle wine/day Hx Substance Use: No Preferred Language: Colombian Communication Ability: Effective Internist Required: Yes Beliefs That Will Affect Care: None Current Living Situation: Significant Other Other Information That Helps Us Care for You: No Feels Safe at Home: Yes Safety Concerns: Feels Safe At This Time Assistive Devices: None Review of Systems Review of Systems: All systems reviewed & are unremarkable except as noted in HPI & below Constitutional: as per Subjective / HPI, + fatigue and + weakness Eyes: + worsening vision (ongoing issue) Ear, Nose, Mouth, Throat: as per Subjective / HPI; no sore throat and no dysphagia Respiratory: as per Subjective / HPI; no hemoptysis and no wheezing Cardiovascular: no chest pain, no palpitations, no syncope and no edema Gastrointestinal: as per Subjective / HPI, + bloating, + nausea, + diarrhea/loose stools and + fecal incontinence; no coffee ground emesis and no blood in stools Genitourinary: as per Subjective / HPI; no hematuria Musculoskeletal: + back pain; no neck pain, no joint pain and no myalgia Integumentary: + yellowing of the skin and + unusual bruising Neurologic: + unsteadiness, + falls and + generalized weakness; no seizure- like activity Psychiatric: + anxiety Physical Exam Constitutional: + thin; no acute distress Eyes: + scleral abnormality (scleral icterus) Neck: trachea midline Respiratory: no respiratory distress and no labored breathing Auscultation: lungs clear to auscultation bilaterally; no rales, no rhonchi and no wheezes Cardiovascular: Rate/Rhythm: regular rate and regular rhythm Heart Sounds: no murmur Gastrointestinal (Abdomen): Inspection/Auscultation: + abdomen distended (softly) and normal bowel sounds Percussion/Palpation: + dullness to percussion (flanks) and + tympanic to percussion (other than flanks); abdomen nontender and no guarding Musculoskeletal: Head/Neck/Chest: normocephalic, head atraumatic and neck supple Skin: + jaundice Neurologic: moves all extremities; no focal motor deficits Psychiatric: A+Ox3, euthymic affect Results & Data Results & Data ([facility]) Vital Signs (Past 12 Hours) Vital Signs Temp Pulse Pulse Resp BP BP Pulse Ox 05/14/21 11:28 77 16 108/66 95 05/14/21 11:25 36.7 C 103 H 16 97/61 L 98 Laboratory Results Laboratory Results - last 24 hr 05/14/21 05/14/21 05/14/21 12:00 12:00 12:00 WBC 17.39 H RBC 2.61 L Hgb 9.5 L Hct 26.5 L MCV 101.5 H MCH 36.4 H MCHC 35.8 RDW Std Deviation 60.9 H RDW Coeff of Deja 16.6 H Plt Count 156 MPV 9.1 Immature Gran % (Auto) 1.2 Neut % (Auto) 81.2 Lymph % (Auto) 6.6 [place] % (Auto) 10.2 Eos % (Auto) 0.5 Baso % (Auto) 0.3 Neut # (Auto) 14.14 H Lymph # (Auto) 1.14 L [place] # (Auto) 1.78 H Eos # (Auto) 0.08 Baso # (Auto) 0.05 Immature Gran # (Auto) 0.20 H PT 19.3 H INR 2.0 H APTT 34.7 H PTT Ratio 1.3 Sodium 123 L Potassium 2.9 L Chloride 88 L Carbon Dioxide 27 Anion Gap 8.0 BUN 24 H Creatinine 1.51 H Est Cr Clr Drug Dosing 45.8 Est GFR ( Amer) 47.9 Est GFR (Non-Af Amer) 41.3 BUN/Creatinine Ratio 15.6 Glucose 94 Calcium 8.1 L Magnesium 1.9 Total Bilirubin 16.7 H AST 178 H ALT 77 Alkaline Phosphatase 117 Ammonia Troponin I < 0.015 Total Protein 7.4 Albumin 1.7 L Globulin 5.7 H Albumin/Globulin Ratio 0.3 L TSH 2.820 Specimen Hemolysis Urine Color Urine Appearance Urine pH Ur Specific [place] Urine Protein Urine Glucose (UA) Urine Ketones Urine Blood Urine Nitrite Urine Bilirubin Urine Urobilinogen Ur Leukocyte Esterase Urine WBC (Auto) Urine RBC (Auto) U Hyaline Cast (Auto) U Epithel Cells (Auto) Urine Bacteria (Auto) Urine Yeast Ethyl Alcohol mg/dL COVID-19 Eval Order SARS-CoV-2 (PCR) 05/14/21 05/14/21 05/14/21 12:00 12:00 12:00 WBC RBC Hgb Hct MCV MCH MCHC RDW Std Deviation RDW Coeff of Deja Plt Count MPV Immature Gran % (Auto) Neut % (Auto) Lymph % (Auto) [place] % (Auto) Eos % (Auto) Baso % (Auto) Neut # (Auto) Lymph # (Auto) [place] # (Auto) Eos # (Auto) Baso # (Auto) Immature Gran # (Auto) PT INR APTT PTT Ratio Sodium Potassium Chloride Carbon Dioxide Anion Gap BUN Creatinine Est Cr Clr Drug Dosing Est GFR ( Amer) Est GFR (Non-Af Amer) BUN/Creatinine Ratio Glucose Calcium Magnesium Total Bilirubin AST ALT Alkaline Phosphatase Ammonia Troponin I Total Protein Albumin Globulin Albumin/Globulin Ratio TSH Specimen Hemolysis Urine Color [place] Urine Appearance Cloudy A Urine pH 5.0 Ur Specific [place] 1.017 Urine Protein Negative Urine Glucose (UA) Negative Urine Ketones Negative Urine Blood Trace H Urine Nitrite Positive A Urine Bilirubin 3+ H Urine Urobilinogen Negative Ur Leukocyte Esterase 2+ H Urine WBC (Auto) 10-30 H Urine RBC (Auto) 0-4 U Hyaline Cast (Auto) 1-5 U Epithel Cells (Auto) >30 H Urine Bacteria (Auto) 1+ H Urine Yeast Not Reportable Ethyl Alcohol mg/dL COVID-19 Eval Order Covid19 at [facility] SARS-CoV-2 (PCR) NEGATIVE 05/14/21 05/14/21 12:18 12:18 WBC RBC Hgb Hct MCV MCH MCHC RDW Std Deviation RDW Coeff of Deja Plt Count MPV Immature Gran % (Auto) Neut % (Auto) Lymph % (Auto) [place] % (Auto) Eos % (Auto) Baso % (Auto) Neut # (Auto) Lymph # (Auto) [place] # (Auto) Eos # (Auto) Baso # (Auto) Immature Gran # (Auto) PT INR APTT PTT Ratio Sodium Potassium Chloride Carbon Dioxide Anion Gap BUN Creatinine Est Cr Clr Drug Dosing Est GFR ( Amer) Est GFR (Non-Af Amer) BUN/Creatinine Ratio Glucose Calcium Magnesium Total Bilirubin AST ALT Alkaline Phosphatase Ammonia < 10.0 L Troponin I Total Protein Albumin Globulin Albumin/Globulin Ratio TSH Specimen Hemolysis Urine Color Urine Appearance Urine pH Ur Specific [place] Urine Protein Urine Glucose (UA) Urine Ketones Urine Blood Urine Nitrite Urine Bilirubin Urine Urobilinogen Ur Leukocyte Esterase Urine WBC (Auto) Urine RBC (Auto) U Hyaline Cast (Auto) U Epithel Cells (Auto) Urine Bacteria (Auto) Urine Yeast Ethyl Alcohol mg/dL < 3.0 COVID-19 Eval Order SARS-CoV-2 (PCR) Diagnostic Findings Chest X-ray 05/14/21 - IMPRESSION: Unchanged subsegmental bibasilar atelectasis. Medications Administered Discontinued Medications Calcium Carbonate (Calcium Carbonate 500 Mg Chewable Tab) 1,500 mg PO NOW STA Stop: 05/14/21 13:25 Last Admin: 05/14/21 14:46 Dose: 1,500 mg Documented by: [id number] Calcium Carbonate (Calcium Carbonate 500 Mg Chewable Tab) Confirm Administered Dose 1,500 mg .ROUTE .STK-MED ONE Stop: 05/14/21 14:46 Last Admin: 05/14/21 14:46 Dose: 1,500 mg Documented by: [id number] Lorazepam (Ativan) 0.5 mg in 1 mls @ 1 mls/min IV NOW STA Stop: 05/14/21 12:07 Last Admin: 05/14/21 12:14 Dose: 1 mls/min Documented by: [id number] Ceftriaxone Sodium (Rocephin) 2,000 mg in 70 mls @ 140 mls/hr IV NOW STA Stop: 05/14/21 13:53 Last Infusion: 05/14/21 14:30 Dose: 140 mls/hr Documented by: [id number] Admin: 05/14/21 14:00 Dose: 140 mls/hr Documented by: [id number] Calcium Gluconate () 1,000 mg in 60 mls @ 240 mls/hr IV NOW STA Stop: 05/14/21 13:39 Last Infusion: 05/14/21 14:03 Dose: 240 mls/hr Documented by: [id number] Admin: 05/14/21 13:48 Dose: 240 mls/hr Documented by: [id number] Code Status & VTE Plan VTE Prophylaxis Plan VTE Prophylaxis will be ordered: Yes Supervising Physician Co-Signing Physician Notes Generalized weakness Alcohol intoxication; sent for withdrawal Alcoholic hepatitis History of liver cirrhosis Admit under telemetry. Start patient on ceftriaxone. Blood and urine cultures have been ordered. Holding diuretics given acute kidney injury. Continue with CIWA protocol. Consult gastroenterology for further input. I performed a history and physical examination of the patient on 05/14/21, including specifically H&P. I have discussed the patient's management with the advanced practitioner. Please refer to the Odilia Will note for the documented findings and plan of care.
[2021-05-14] MEDS ORDERED: POTASSIUM CHLORIDE CRTAB 20 MEQ TABCR PO STA (15:40)
[2021-05-14] MEDS ORDERED: LORazepam 1 MG TAB PO PRN (16:39)
[2021-05-14] MEDS ORDERED: FLUARIX QUADRIVALENT 0.5 ML SYR IM ONE (17:30)
[2021-05-14] MEDS: FOLIC ACID 1 MG TAB PO SCH (17:37)
[2021-05-14] MEDS: THIAMINE HCL 100 MG TAB PO SCH (17:37)
[2021-05-14] MEDS: POTASSIUM CHLORIDE 20 MEQ in D5W AND NSS 1,000 ML IV SCH (18:32)
--- NOTE | 2021-05-14 19:38 | Ultrasound Report ---
US abdomen limited CLINICAL HISTORY: check for ascites. Abdominal distention. COMPARISON STUDY: Ultrasound guided paracentesis 10/02/2020. FINDINGS: There is a small to moderate amount of ascites seen scattered throughout the abdomen. This has improved compared to the prior study. Nodular contour to the liver consistent with cirrhosis is a gain noted. IMPRESSION: Small to moderate ascites. ACT 112: Negative or not required by law. Electronically signed by: Nabil Walsh M.D. 05/14/2021 7:37 PM
[2021-05-14 22:10] LABS: BUN Creatinine Ratio 17.2 (10-20); Calcium 7.8 mg/dl (8.5-10.1); Est GFR (Non-African American) 44.9 ml/min; Potassium 3.3 mmol/L (3.5-5.1)
[2021-05-15] MEDS: POTASSIUM CHLORIDE 20 MEQ in D5W AND NSS 1,000 ML IV SCH (05:20)
[2021-05-15 08:32] LABS: Hematocrit (blood only) 21.3 % (37-47); Hemoglobin 7.6 g/dL (12.0-16.0); Mean Corpuscular Hemoglobin 35.5 pg (25-34); Mean Corpuscular Hgb Conc 35.7 g/dL (32-36); Mean Corpuscular Volume 99.5 fL (80-100); Platelet Count 127 K/uL (130-400); RDW Coefficient of Variation 17.2 % (11.5-14.5); RDW Standard Deviation 61.5 fL (36.4-46.3); Red Blood Count 2.14 M/uL (4.2-5.4); White Blood Count 14.53 K/uL (4.8-10.8)
[2021-05-15 08:45] LABS: INR 2.1 (0.9-1.1); Prothrombin Time 19.8 Seconds (9.0-12.0)
[2021-05-15 08:57] LABS: ALC (manual) 0.77 K/uL (1.2-3.4); ANC (manual) 13.25 K/uL (1.4-6.5); Anisocytosis Present; Eosinophils # (manual) 0.13 K/uL (0-0.5); Eosinophils % (manual) 0.9 %; Hypochromasia Present; Lymphocytes # (manual) 0.77 K/uL (1.2-3.4); Lymphocytes % (manual) 5.3 %; Monocytes # (manual) 0.38 K/uL (0.11-0.59); Monocytes % (manual) 2.6 %; Neutrophils # (manual) 13.25 K/uL (1.4-6.5); Neutrophils % (manual) 91.2 %; Polychromasia 1+; Target Cells 1+
[2021-05-15] MEDS: SERTRALINE HCL 100 MG TABLET PO SCH (09:01)
[2021-05-15] MEDS: FOLIC ACID 1 MG TAB PO SCH (09:01)
[2021-05-15] MEDS: THIAMINE HCL 100 MG TAB PO SCH (09:01)
--- NOTE | 2021-05-15 09:02 | Gastrointestinal Consultation ---
Date of Consultation May 15, 2021 Assessment & Plan (1) Alcoholic hepatitis: (2) Cirrhosis: Pt is a 45 y/o female w hx of fatty liver, ETOH cirrhosis, RYGB who presented w c/o jaundice, abd distension, weakness, JIN. On eval noted to have UTI, + ascites and elevated LFTs particularly Tbili, concerning for ETOH hepatitis. MELD 32. [place] [facility] Discriminant Function Score: 50 - MRCP to r/o biliary obstruction - Arrange US paracentesis w fluid analysis, cell ct - Continue Ceftriaxone IV - F/U urine culture - Pentoxifylline 400mg TID for Alcoholic Hepatitis - If continued hypotension, start Midodrine 5mg TID - Hold diuretics ; - Correct electrolyte imbalance - Monitor renal function, coag function and mental status daily - 2g Na diet - ETOH cessation advised Supervising Physician Co-Signing Physician Notes Attg add: I interviewed and examined and reviewed pt, reviewed chart and labs. Pt with alc hep, mild incre creat, no enceph. W/u SBP, plan as above. Titrate midodrine to systolic > 100. History of Present Illness Reason for Consultation: Alcoholic Hepatitis Requesting Physician: Dr. Ashley Garvey Attending Physician: Dr. Dennis Mcpherson History of Present Illness Pt is a 45 y/o female w hx of fatty liver, RYGB, EOH cirrhosis who presented to ED yesterday w c/o light headedness, weakness/fatigue, JIN, jaundice, and increased abd distension x 2 weeks. She report compliance with diuretics at home: Lasix 40mg daily + Spironolactone 100mg daily. She is falling at home, last fall around . Denies fever, chills, CP, SOB. + mild nausea w/o vomiting. Bowels move every other day w/o rectal bleeding or dark tarry stools. She reports recent UTI, treated w Bactrim x 7 days. She is trying to cut down on ETOH intake - currently 1 small bottle of wine a day. She just moved back to town, hasn't establish here with drug/etoh rehab or counseling but previously was. On eval, labs notable for leukocytosis, anemia, hypokalemia, hyponatremia. LFTs elevated w marked elevation of Tbili of 16 (was 15 2 weeks ago). Urine cx growing gram negative bacilli. Blood cx w/o growth. COVID 19 negative. CXR bibasilar atelectasis. US abd small to moderate ascites. Allergies Allergy/AdvReac Type Severity Reaction Status Date / Time morphine AdvReac Severe Respiratory Verified 05/14/21 13:01 distress Home Medications Medication Instructions Recorded Confirmed Type cholecalciferol (vitamin D3) 25 25 mcg PO DAILY 09/30/20 05/14/21 History mcg (1,000 unit) tablet hydroxyzine HCl 50 mg tablet 50 mg PO Q6H PRN 09/30/20 05/14/21 History vitamin B complex 1 tab PO DAILY 09/30/20 05/14/21 History multivitamin 1 tab PO DAILY #90 tab 10/03/20 05/14/21 Rx spironolactone 25 mg tablet 75 mg PO BID17 #180 tab 10/03/20 05/14/21 Rx calcium carbonate 600 mg (1,500 1 tab PO DAILY 05/14/21 05/14/21 History mg)-vitamin D3 200 unit tablet furosemide 20 mg tablet 20 mg PO BID 05/14/21 05/14/21 History potassium chloride 20 mEq 20 meq PO DAILY 05/14/21 05/14/21 History tablet,extended release sertraline 50 mg tablet 100 mg PO DAILY 05/14/21 05/14/21 History trazodone 50 mg tablet 50 mg PO HS PRN 05/14/21 05/14/21 History Patient History Medical History Alcohol abuse Anemia due to vitamin B12 deficiency Anemia, iron deficiency Ascites Cirrhosis Depression with anxiety Fatty liver History of alcoholic hepatitis Surgical History H/O: hysterectomy Hx of gastric bypass Micheal-en-Y Family History Father Heart disease Social History Smoking Status: Current every day smoker Tobacco Type: E-cigarettes / Vaping Second Hand Exposure: Yes; Do You Dip or Chew Tobacco: No; Tobacco Cessation Education Requested by Patient: No Hx Alcohol Use: Yes Alcohol type: wine and hard liquor Alcohol Intake Frequency: 4 or More x per/Week Alcohol Intake Frequency Comment: 1 bottle wine/day Hx Substance Use: No Preferred Language: Sinhala Communication Ability: Effective Coroner Forensic Technician Required: Yes Beliefs That Will Affect Care: None Current Living Situation: Significant Other Other Information That Helps Us Care for You: No Feels Safe at Home: Yes Safety Concerns: Feels Safe At This Time Assistive Devices: None Review of Systems Review of Systems: All systems reviewed & are unremarkable except as noted in HPI & below Physical Exam Constitutional: WD/WN, vitals as above well groomed, cooperative and comfortable Eyes: + icteric sclera, EOMs intake ENMT: external ear and nose normal, oropharynx normal Respiratory: normal respiratory effort, lungs clear to auscultation Cardiovascular: RRR, no murmur, no edema Gastrointestinal (Abdomen): normal bowel sounds, soft, nontender, no hepatosplenomegaly Skin: no rashes, warm and dry + jaundice Neurologic: Motor/Sensory: + tremor; no asterixis Psychiatric: A+Ox3, euthymic affect Lymphatic: no lymphedema Results & Data ([facility]) Vital Signs (Past 12 Hours) Vital Signs Temp Pulse Pulse Resp BP BP Pulse Ox 05/15/21 07:50 87 05/15/21 07:00 37.0 C 86 16 87/55 L 93 05/15/21 03:04 36.8 C 82 16 106/67 91 05/15/21 01:23 89 05/14/21 23:10 36.9 C 93 H 16 102/61 90 (1) Alcoholic hepatitis Ascites presence: unspecified Qualified Code(s): K70.10 - Alcoholic hepatitis without ascites
[2021-05-15 09:03] LABS: Albumin Level 1.4 gm/dl (3.4-5.0); BUN Creatinine Ratio 16.5 (10-20); Calcium 7.4 mg/dl (8.5-10.1); Creatinine Clr Calc Pharmacy 62.8 ml/min; Est GFR (African American) 70.2 ml/min; Est GFR (Non-African American) 60.6 ml/min; Potassium 3.5 mmol/L (3.5-5.1)
[2021-05-15 09:06] LABS: Albumin Globulin Ratio 0.3 (0.9-2); Bilirubin,Total 12.9 mg/dl (0.2-1); Globulin 4.6 gm/dl (2.5-4.0)
[2021-05-15] MEDS ORDERED: PHYTONADIONE 10 MG in SODIUM CHLORIDE 0.9% 50 ML IV ONE (09:28)
[2021-05-15] MEDS: hydrOXYzine HCl 25 MG TAB PO PRN ×2 (09:48→18:53)
[2021-05-15] MEDS ORDERED: AcetylCYSTEINE IV 21 HR REGIMEN (>40KG) IV STA (10:25)
--- NOTE | 2021-05-15 10:58 | Ultrasound Report ---
ULTRASOUND-GUIDED DIAGNOSTIC AND THERAPEUTIC PARACENTESIS: HISTORY: Ascites Procedure: The procedure and its risks, benefits and alternatives were discussed with the patient and written informed consent was obtained. Preliminary ultrasound of the abdomen was performed to determ ine a safe needle entry site. The right lower quadrant was prepped and draped in the usual sterile fashion. 1% Lidocaine was used f or local anesthesia. A paracentesis needle-sheath was inserted into the peritoneal space using ultras ound guidance. The needle was removed and the sheath was connected to tubing and a vacuum suction dev ice. A total of 1.5 liters of yellow ascites was aspirated. The sheath was removed and a sterile dres sing applied. The patient tolerated the procedure well and there were no immediate complications. IMPRESSION: Ultrasound-guided therapeutic paracentesis with aspiration of 1.5 liters of ascites. 1 L was sent to the laboratory at the request of the referring physician. ACT 112: Negative or not required by law. Electronically signed by: Nabil Walsh M.D. 05/15/2021 10:57 AM
[2021-05-15 11:26] LABS: Albumin Peritoneal Fluid < 0.6 g/dl; Total Protein Peritoneal Fluid 1.1 g/dl
[2021-05-15 11:44] LABS: Appearance Peritoneal Fluid CLEAR; Basophils, Fluid 0 %; Color Peritoneal Fluid YELLOW; Eosinophils, Fluid 0 %; Lymphocytes, Fluid 30 %; Mono,Macrophage,Mesothelial 65 %; Neutrophils, Fluid 5 %; RBC Peritoneal Fluid (A) < 3000 /uL; WBC Peritoneal Fluid (A) 183 /ul (0-300)
[2021-05-15] MEDS: MIDODRINE HCL 2.5 MG TAB PO SCH ×2 (12:04→17:15)
[2021-05-15] MEDS: PENTOXIFYLLINE 400MG EXT REL TAB PO SCH ×2 (13:32→20:19)
[2021-05-15] MEDS: cefTRIAXone SODIUM 2,000 MG in DEXTROSE 5% 50 ML IV SCH (13:34)
--- NOTE | 2021-05-15 14:59 | Hospitalist Progress Note ---
Date of Service May 15, 2021 Assessment & Plan (1) Alcoholic hepatitis: (2) Alcohol abuse: (3) Cirrhosis: (4) Hypokalemia: (5) Hyponatremia: Plan: Generalized weakness Alcohol intoxication; sent for withdrawal Alcoholic hepatitis Acute kidney injury -resolved Elevated LFTs Possible UTI Hypokalemia - resolved Acute hyponatremia -improving History of liver cirrhosis History of gastric bypass History of alcohol abuse Patient was seen post paracentesis today. 2 L of fluid removed. Appreciate gastroenterology input. Plan to obtain MRCP to rule out biliary obstruction. Urine cultures are pending. Continue with ceftriaxone for now. Continue with pentoxifylline 400mg TID for Alcoholic Hepatitis Continue holding diuretics for now. Continue with CIWA protocol. Pt seen and reviewed with attending physician Dr. Garvey. Plan of care discuss ed and as outlined above. DVT Prophylaxis: SCDs Code Status: Full Code Tommy Will PA-C Admission and Anticipated Discharge Date Admission Date: May 14, 2021 Subjective Patient was seen post paracentesis today with 2 L of fluid removed. Was feeling nauseous earlier. Denies any chest pain, shortness of breath but did have some abdominal discomfort earlier ports she is passing a lot of flatus. Have had a 3 bowel movement since the morning. Does report bilateral shoulder and neck pain. Most of the review of system is negative. Review of Systems Review of Systems: All systems reviewed & are unremarkable except as noted in HPI & below Physical Exam Physical Exam: General: Chronically ill-appearing female HENT: NCAT, MMM, EOMI Eyes: icterus Neck: Supple, normal range of motion CVS: normal rate and rhythm Resp: b/l good breath sounds Abdomen: Soft, ND/NT, +BS Extremities: No c/c/e Neuro: face symmetric, no focal deficit Skin: warm and dry, no rashes/lesions/errythema MSK: nno joint swelling/erythema Results & Data Results & Data ([facility]) Vital Signs (Past 12 Hours) Vital Signs Temp Pulse Pulse Resp BP BP Pulse Ox 05/15/21 11:00 36.8 C 84 16 100/65 94 05/15/21 09:05 92/60 L 05/15/21 07:50 87 05/15/21 07:00 37.0 C 86 16 87/55 L 93 05/15/21 03:04 36.8 C 82 16 106/67 91 (1) Alcoholic hepatitis Ascites presence: unspecified Qualified Code(s): K70.10 - Alcoholic hepatitis without ascites
[2021-05-15] MEDS: ONDANSETRON INJ 2 MG/ML 2 ML VIAL IV PRN (15:06)
[2021-05-15] MEDS: D5NSS + 20MEQ KCL 20 MEQ/1,000 ML BAG IV SCH (17:14)
[2021-05-15] MEDS: traZODone HCL 50 MG TAB PO PRN (20:25)
--- NOTE | 2021-05-15 20:28 | Magnetic Resonance Report ---
MR MRCP HISTORY: 45 years-old Female r/o biliary obstruction; elevated Tbili acute nausea and vomiting with generalized abdominal pain COMPARISON: Ultrasound-guided paracentesis of same day, CT abdomen pelvis 09/30/2020 TECHNIQUE: MRCP without the use of IV contrast was obtained according to institutional protocol FINDINGS: Motion degraded exam. Cirrhotic morphology of the liver with recanalization of the umbilical vein. Cy sts of the left hepatic lobe none measure up to 2 cm. The spleen measures the upper limits of normal in size. Small to moderate abdominal pelvic ascites. Wall thickening of the stomach may be related to partial distention. Additionally there is partially imaged wall thickening involving the ascending a nd proximal transverse colon. No pancreatic ductal dilation identified. Moderately distended gallbladder appears unchanged from comparison. No cholelithiasis identified. Mandy luation of the biliary tree is limited secondary to the aforementioned motion artifact. The common bi le duct measures 4 mm transversely. No biliary lesion, stricture or choledocholithiasis identified. IMPRESSION: 1. Moderately distended gallbladder is unchanged from comparison. No cholelithiasis or biliary ductal dilation identified. 2. Cirrhotic morphology of the liver with stigmata of portal venous hypertension including recanalize d umbilical vein with small to moderate abdominal ascites. 3. Wall thickening of the ascending and transverse colon may be secondary to portal colopathy versus a nonspecific colitis. ACT 112: Negative or not required by law. The above report was generated using voice recognition software. It may contain grammatical, syntax o r spelling errors. Electronically signed by: Jeremiah Acosta M.D. 05/15/2021 8:27 PM
[2021-05-16] MEDS: D5NSS + 20MEQ KCL 20 MEQ/1,000 ML BAG IV SCH ×2 (04:46→14:31)
--- NOTE | 2021-05-16 06:02 | Electrocardiogram Report ---
Test Reason : Blood Pressure : / mmHG Vent. Rate : 078 BPM Atrial Rate : 078 BPM P-R Int : 174 ms QRS Dur : 098 ms QT Int : 528 ms P-R-T Axes : 037 007 040 degrees QTc Int : 601 ms Normal sinus rhythm Cannot rule out Anterior infarct (cited on or before 30-SEP-2020) Prolonged QT Abnormal ECG When compared with ECG of 30-SEP-2020 11:57, QT has lengthened Confirmed by Carlos Rodgers ([id number]) on 05/16/2021 6:01:53 AM Referred By: REFERRED SELF Confirmed By:Carlos Rodgers
[2021-05-16 08:35] LABS: Hematocrit (blood only) 20.6 % (37-47); Hemoglobin 7.2 g/dL (12.0-16.0); Mean Corpuscular Hemoglobin 35.8 pg (25-34); Mean Corpuscular Volume 102.5 fL (80-100); Mean Platelet Volume 8.7 fL (7.4-10.4); Platelet Count 112 K/uL (130-400); RDW Coefficient of Variation 17.2 % (11.5-14.5); RDW Standard Deviation 64.4 fL (36.4-46.3); Red Blood Count 2.01 M/uL (4.2-5.4); White Blood Count 11.86 K/uL (4.8-10.8)
[2021-05-16 08:42] LABS: Albumin Level 1.1 gm/dl (3.4-5.0); BUN Creatinine Ratio 11.5 (10-20); Calcium 7.7 mg/dl (8.5-10.1); Creatinine Clr Calc Pharmacy 88.6 ml/min; Est GFR (African American) 106.4 ml/min; Est GFR (Non-African American) 91.8 ml/min; Potassium 2.8 mmol/L (3.5-5.1)
[2021-05-16 08:47] LABS: INR 2.1 (0.9-1.1); Prothrombin Time 20.5 Seconds (9.0-12.0)
[2021-05-16 08:48] LABS: Albumin Globulin Ratio 0.2 (0.9-2); Basophils # (auto) 0.04 K/uL (0-0.2); Basophils % (auto) 0.3 %; Bilirubin,Total 11.2 mg/dl (0.2-1); Eosinophils # (auto) 0.19 K/uL (0-0.5); Eosinophils % (auto) 1.6 %; Globulin 4.6 gm/dl (2.5-4.0); Immature Granulocytes # (auto) 0.08 K/uL (0.00-0.02); Immature Granulocytes % (auto) 0.7 %; Lymphocytes # (auto) 1.15 K/uL (1.2-3.4); Lymphocytes % (auto) 9.7 %; Monocytes # (auto) 1.74 K/uL (0.11-0.59); Monocytes % (auto) 14.7 %; Neutrophils # (auto) 8.66 K/uL (1.4-6.5); Rouleaux 1+; Target Cells 1+; Total Protein 5.7 gm/dl (6.4-8.2)
[2021-05-16] MEDS ORDERED: LORazepam 1 MG TAB PO PRN (08:56)
[2021-05-16] MEDS ORDERED: LORazepam 0.5 MG/1 ML VIAL IV PRN (08:56)
[2021-05-16] MEDS ORDERED: GABAPENTIN 1200MG ALCOHOL WITHDRAWAL LOAD PO STA (08:56)
[2021-05-16] MEDS ORDERED: FOLIC ACID 1 MG TAB PO SCH (09:00)
[2021-05-16] MEDS ORDERED: THIAMINE HCL 100 MG TAB PO SCH (09:00)
[2021-05-16] MEDS ORDERED: GABAPENTIN 600 MG TAB PO ONE (09:15)
--- NOTE | 2021-05-16 09:49 | Gastroenterology Progress Note ---
Date of Service May 16, 2021 Assessment & Plan (1) Alcoholic hepatitis: (2) Cirrhosis: Plan: Pt is a 45 y/o female w hx of fatty liver, ETOH cirrhosis, RYGB who presented w c/o jaundice, abd distension, weakness, JIN. On eval noted to have UTI, + ascites and elevated LFTs particularly Tbili, concerning for ETOH hepatitis. MELD 32. [facility] Discriminant Function Score: 50 MRCP w.o signs of biliary obstruction US paracentesis w 1.5L ascites removal done on 05/15. No signs of SBP from fluid analysis Urine cx + Ecoli susceptible to Ceftriaxone. Blood cx no growth. Ascites fluid cx pending LFTs decreasing, she is mentating well. + worsening anemia but w/o s/s of GI bleeding. K 2.8 this AM - Primary team notified by nursing staff on drop in blood ct, may transfuse blood. - UTI management per primary team - Pentoxifylline 400mg TID for Alcoholic Hepatitis - NAC 21hr protocol to be completed - Midodrine 5mg TID for systolic > 100. - Hold diuretics ; - Correct electrolyte imbalance - Monitor renal function, coag function and mental status daily - 2g Na diet - ETOH cessation advised - Upon DC will need f/u LFTs twice weekly and close f/u w in Hepatology clinic - Will continue to monitor Admission and Anticipated Discharge Date Admission Date: May 14, 2021 Supervising Physician Co-Signing Physician Notes Attg add: I interviewed and examined pt, reviewed chart and labs. Pt with stable creat, slight improvement in bili. Fluid studies show no SBP, c/w portal HTN. Pt mildly tremulous, but o/w no complaints. OK to d/c midodrine, encourage PO intake. Subjective Pt denies fever, chills, CP, SOB, abd pain, n/v. Passing BM and flatus. No dark tarry stools or rectal bleeding. Review of Systems Review of Systems: All systems reviewed & are unremarkable except as noted in HPI & below Physical Exam Constitutional: WD/WN, vitals as above well groomed, cooperative and comfortable Eyes: icteric sclera ENMT: external ear and nose normal, oropharynx normal Respiratory: normal respiratory effort, lungs clear to auscultation Cardiovascular: RRR, no murmur, no edema Gastrointestinal (Abdomen): normal bowel sounds, soft, nontender, no hepatosplenomegaly Skin: no rashes, warm and dry + jaundice Neurologic: Motor/Sensory: no asterixis Psychiatric: A+Ox3, euthymic affect Lymphatic: no lymphedema Results & Data ([facility]) Vital Signs (Past 12 Hours) Vital Signs Temp Pulse Pulse Resp BP BP Pulse Ox 05/16/21 07:27 82 05/16/21 07:00 36.7 C 82 16 82/47 L 96 05/16/21 03:03 37.1 C 84 18 97/61 L 92 05/16/21 02:44 83 05/15/21 23:09 37.1 C 86 18 90/58 L 94 (1) Alcoholic hepatitis Ascites presence: unspecified Qualified Code(s): K70.10 - Alcoholic hepatitis without ascites
[2021-05-16] MEDS: PENTOXIFYLLINE 400MG EXT REL TAB PO SCH ×3 (10:06→21:05)
[2021-05-16] MEDS: SERTRALINE HCL 100 MG TABLET PO SCH (10:06)
[2021-05-16] MEDS: FOLIC ACID 1 MG TAB PO SCH (10:06)
[2021-05-16] MEDS: PANTOprazole 40 MG TAB PO SCH (10:06)
[2021-05-16] MEDS: THIAMINE HCL 100 MG TAB PO SCH (10:06)
[2021-05-16] MEDS: MIDODRINE HCL 2.5 MG TAB PO SCH ×2 (10:07→13:16)
[2021-05-16] MEDS: POTASSIUM CHLORIDE CRTAB 20 MEQ TABCR PO SCH ×2 (10:37→21:06)
[2021-05-16] MEDS: POTASSIUM CHLORIDE / WTR 10 MEQ/100 ML PLCT IV SCH ×2 (10:37→11:46)
[2021-05-16] MEDS: ONDANSETRON INJ 2 MG/ML 2 ML VIAL IV PRN (10:44)
[2021-05-16] MEDS ORDERED: PHYTONADIONE 10 MG in SODIUM CHLORIDE 0.9% 50 ML IV ONE (13:00)
[2021-05-16 13:53] LABS: Hematocrit (blood only) 20.3 % (37-47); Hemoglobin 7.3 g/dL (12.0-16.0)
[2021-05-16] MEDS: cefTRIAXone SODIUM 2,000 MG in DEXTROSE 5% 50 ML IV SCH (14:04)
[2021-05-16 14:51] LABS: Folate (Folic Acid) > 20.00 ng/ml (>5.38); Vitamin B12 1759 pg/ml (193-986)
[2021-05-16] MEDS ORDERED: SODIUM CHLORIDE 0.9% 250 ML IV PRN (15:04)
[2021-05-16] MEDS: GABAPENTIN 600 MG TAB PO SCH ×2 (15:07→21:07)
[2021-05-16] MEDS ORDERED: ACETAMINOPHEN 325 MG TAB PO ONE (16:18)
--- NOTE | 2021-05-16 16:22 | Hospitalist Progress Note ---
Date of Service May 16, 2021 Assessment & Plan (1) Alcoholic hepatitis: (2) Alcohol abuse: (3) Cirrhosis: (4) Hypokalemia: (5) Hyponatremia: Plan: Generalized weakness Alcohol intoxication; sent for withdrawal Alcoholic hepatitis Acute kidney injury -resolved Elevated LFTs Possible UTI Hypokalemia - resolved Acute hyponatremia -improving History of liver cirrhosis History of gastric bypass History of alcohol abuse 05/15/2021 status post paracentesis today. 2 L of fluid removed. 05/16/2021 MRCP: No obstruction Hemoglobin 7, INR 2.1 No signs of overt bleeding Discussed with GI, will transfuse 2 unit of packed RBCs, give vitamin K 10 mg IV Monitor H&H, INR Continue with pentoxifylline 400mg TID for Alcoholic Hepatitis Continue with midodrine Continue holding diuretics for now. Follow-up urine culture Continue ceftriaxone day #2 Gabapentin taper, AWSS protocol ordered Disposition Pending We will need PT and OT evaluation plan of care discussed with patient in detail and at length all questions answered she is understanding, agreeable, comfortable with the plan of care Admission and Anticipated Discharge Date Admission Date: May 14, 2021 Subjective Follow-up for alcoholic hepatitis, etc. Seen resting in bed, comfortable, not in distress Appears somewhat weak States she feels tired, has nausea, but no abdominal pain, fevers or chills Denies shortness of breath, palpitations, chest pain No note of melena or hematochezia No other symptom Review of Systems Review of Systems: all noted and negative except for above Physical Exam Physical Exam: General- oriented x 3, not in distress, speaks in sentences with no effort or accessory muscle use Appears weak Head- atraumatic Eyes- PERRL, EOMI, positive icterus ENT- oropharynx clear Neck- supple, no JVD, no adenopathy, no thyromegaly; carotids +2/2, no bruits appreciated Lungs- clear to auscultation bilaterally, no rales/wheezes Heart- normal rate, regular rhythm; no murmur, no gallop, no rub appreciated Abdomen- normal bowel sounds, nondistended, soft, nontender, no masses or hepatosplenomegaly Extremities- no pretibial edema, no calf tenderness; peripheral pulses intact Positive mild tremors Neuro- alert, oriented x 3; CN 2-12 grossly intact; motor 5/5 bilaterally;sensation 100% on all extremities; no other gross focal neurologic deficits Skin-positive jaundice, warm & dry Results & Data Results & Data ([facility]) Vital Signs (Past 12 Hours) Vital Signs Temp Pulse Pulse Resp BP BP Pulse Ox 05/16/21 16:00 81 05/16/21 15:17 36.8 C 83 16 96/63 L 94 05/16/21 14:25 36.7 C 85 16 103/65 94 05/16/21 14:03 36.6 C 76 16 96/64 L 92 05/16/21 11:00 36.6 C 91 H 16 123/83 93 05/16/21 07:27 82 05/16/21 07:00 36.7 C 82 16 82/47 L 96 all noted and reviewed including below (1) Alcoholic hepatitis Ascites presence: unspecified Qualified Code(s): K70.10 - Alcoholic hepatitis without ascites
[2021-05-16] MEDS: traZODone HCL 50 MG TAB PO PRN (21:10)
[2021-05-16] MEDS: hydrOXYzine HCl 25 MG TAB PO PRN (21:11)
[2021-05-16 21:46] LABS: Hematocrit (blood only) 24.9 % (37-47); Hemoglobin 8.9 g/dL (12.0-16.0)
[2021-05-17 01:34] LABS: Hematocrit (blood only) 23.5 % (37-47); Hemoglobin 8.4 g/dL (12.0-16.0)
[2021-05-17] MEDS: GABAPENTIN 600 MG TAB PO SCH ×3 (05:49→20:41)
[2021-05-17] MEDS: THIAMINE HCL 100 MG TAB PO SCH (07:51)
[2021-05-17] MEDS: PANTOprazole 40 MG TAB PO SCH (07:52)
[2021-05-17] MEDS: FOLIC ACID 1 MG TAB PO SCH (07:52)
[2021-05-17] MEDS: PENTOXIFYLLINE 400MG EXT REL TAB PO SCH ×3 (07:52→20:41)
[2021-05-17] MEDS: SERTRALINE HCL 100 MG TABLET PO SCH (07:52)
[2021-05-17] MEDS: POTASSIUM CHLORIDE CRTAB 20 MEQ TABCR PO SCH ×2 (07:52→20:41)
[2021-05-17 07:54] LABS: Hematocrit (blood only) 24.1 % (37-47); Hemoglobin 8.6 g/dL (12.0-16.0); Mean Corpuscular Hemoglobin 35.4 pg (25-34); Mean Corpuscular Hgb Conc 35.7 g/dL (32-36); Mean Corpuscular Volume 99.2 fL (80-100); Mean Platelet Volume 8.9 fL (7.4-10.4); Platelet Count 101 K/uL (130-400); RDW Standard Deviation 72.4 fL (36.4-46.3); Red Blood Count 2.43 M/uL (4.2-5.4)
[2021-05-17 08:10] LABS: INR 1.8 (0.9-1.1); Prothrombin Time 17.8 Seconds (9.0-12.0)
[2021-05-17] MEDS: ONDANSETRON INJ 2 MG/ML 2 ML VIAL IV PRN (08:10)
[2021-05-17 08:18] LABS: Basophils # (auto) 0.09 K/uL (0-0.2); Basophils % (auto) 0.8 %; Eosinophils # (auto) 0.23 K/uL (0-0.5); Eosinophils % (auto) 1.9 %; Immature Granulocytes # (auto) 0.07 K/uL (0.00-0.02); Immature Granulocytes % (auto) 0.6 %; Lymphocytes # (auto) 1.38 K/uL (1.2-3.4); Lymphocytes % (auto) 11.6 %; Monocytes # (auto) 1.28 K/uL (0.11-0.59); Monocytes % (auto) 10.8 %; Neutrophils # (auto) 8.85 K/uL (1.4-6.5); Neutrophils % (auto) 74.3 %; Rouleaux 1+; Target Cells 1+
[2021-05-17 08:35] LABS: Albumin Globulin Ratio 0.2 (0.9-2); Albumin Level 1.2 gm/dl (3.4-5.0); BUN Creatinine Ratio 8.9 (10-20); Bilirubin,Total 11.6 mg/dl (0.2-1); Calcium 7.6 mg/dl (8.5-10.1); Est GFR (African American) 117.2 ml/min; Est GFR (Non-African American) 101.1 ml/min; Globulin 4.9 gm/dl (2.5-4.0); Total Protein 6.1 gm/dl (6.4-8.2)
[2021-05-17] MEDS: cefTRIAXone SODIUM 2,000 MG in DEXTROSE 5% 50 ML IV SCH (13:03)
--- NOTE | 2021-05-17 13:51 | Gastroenterology Progress Note ---
Date of Service May 17, 2021 Assessment & Plan (1) Alcoholic hepatitis: (2) Cirrhosis: Plan: Pt is a 45 y/o female w hx of fatty liver, ETOH cirrhosis, RYGB who presented w c/o jaundice, abd distension, weakness, JIN. On eval noted to have UTI, + ascites and elevated LFTs particularly Tbili, concerning for ETOH hepatitis. Imaging w/o signs of bile duct obstruction. MELD 24. [facility] Discriminant Function Score: 38 (on 3rd day of pentoxyfylline) - Continue Ceftriaxone IV (UTI) - Continue Pentoxifylline 400mg TID for Alcoholic Hepatitis - If hypotension, consider Midodrine 5mg TID - May restart diuretics at time of discharge. (Renal function is normal). - 2g Na diet - Continue, permanent ETOH cessation. Recommend rehab. - Continue OP GI f/u with Dr. Connell. Admission and Anticipated Discharge Date Admission Date: May 14, 2021 Supervising Physician Co-Signing Physician Notes Attg add: I interviewed and examined pt, reviewed chart and labs. Pt without complaint. Labs show stable creat and bili, improved NA. Would consider transition to steroids once completes abx for UTI for Alc hep. Encourage nutrition. Subjective Follow-up for alcoholic hepatitis, etc. Awake, alert, oriented. Remains jaundiced. Eating small amts. Continues with fatigue but denies pain. Is awake and oriented. US paracentesis 05/14 1.5 L Fluid analysis 183 WBCs, 5% neutrophils Fluid cx no growth Urine culture with E Coli Review of Systems Review of Systems: ROS: Gen: + weakness, No fevers, weight loss Eyes: No eye redness, or pain, no recent vision changes Resp: No SOB, no cough Cardio: No palpitations/irregular beats, no chest pain GI: Abdomen uncomfortable but no pain, no nausea/vomiting : Denies pain on urination Skin: +++ jaundice, no skin lesions Physical Exam Constitutional: well developed and cooperative Eyes: PERRL, conjunctivae normal, anicteric sclerae Respiratory: normal respiratory effort, lungs clear to auscultation Cardiovascular: RRR, no murmur, no edema Gastrointestinal (Abdomen): normal bowel sounds, soft, nontender, no hepatosplenomegaly Moderate ascites, non tender Skin: no rashes, warm and dry normal turgor Neurologic: PERRL, EOMI, accommodation nl, no face palsy, no dysarthria awake; not confused Psychiatric: A+Ox3, euthymic affect Orientation: alert, oriented x 3 and cooperative Results & Data ([facility]) Vital Signs (Past 12 Hours) Vital Signs Temp Pulse Resp BP BP Pulse Ox 05/17/21 11:46 37.0 C 85 16 96/64 L 94 05/17/21 07:50 37.0 C 85 20 98/62 L 93 05/17/21 02:53 36.8 C 81 16 98/65 L 98 Laboratory Results Wbc 11.9, hB 8.6, Hct 24.4, plts 101, Na 134, K 4.0, Cl 106, CO2 24, BUN 6, Cr 0.72, Glucose 140. INR 1.8 T Bili 11.2, AST 100, ALT 52, Alk Phos 79 Diagnostic Findings MRCP 05/15/21: 1. Moderately distended gallbladder is unchanged from comparison. No cholelithiasis or biliary ductal dilation identified. 2. Cirrhotic morphology of the liver with stigmata of portal venous hypertension including recanalized umbilical vein with small to moderate abdominal ascites. 3. Wall thickening of the ascending and transverse colon may be secondary to portal colopathy versus a nonspecific colitis. Abd US for ascites: Small to moderate ascites. (1) Alcoholic hepatitis Ascites presence: unspecified Qualified Code(s): K70.10 - Alcoholic hepatitis without ascites
--- NOTE | 2021-05-17 15:10 | Hospitalist Progress Note ---
Date of Service May 17, 2021 Assessment & Plan (1) Alcoholic hepatitis: (2) Alcohol abuse: (3) Cirrhosis: (4) Hypokalemia: (5) Hyponatremia: Plan: Generalized weakness Alcohol intoxication; sent for withdrawal Alcoholic hepatitis Acute kidney injury -resolved Elevated LFTs Possible UTI Hypokalemia - resolved Acute hyponatremia -improving History of liver cirrhosis History of gastric bypass History of alcohol abuse 05/15/2021 status post paracentesis. 2 L of fluid removed. 05/16/2021 MRCP: No obstruction Hemoglobin 7, INR 2.1 No signs of overt bleeding Discussed with GI, will transfuse 1 unit of packed RBCs, give vitamin K 10 mg IV 05/17 Hg improved to 8.6 INR improved to 1.8 completed NAC protocol Continue with pentoxifylline 400mg TID for Alcoholic Hepatitis Continue with midodrine PRN for systolic bp < 90 Continue holding diuretics for now--> resume on discharge UTI E coli per urine culture Continue ceftriaxone day #3 Alcochol Withdrawal Gabapentin taper, AWSS protocol ordered no signs of overt Withdrawal/DTs Disposition Pending PT and OT evaluation declines inpatient alcohol rehab, prefers to continue with outpatient counselling program plan of care discussed with patient in detail and at length all questions answered she is understanding, agreeable, comfortable with the plan of care Admission and Anticipated Discharge Date Admission Date: May 14, 2021 Subjective ff up for alcoholic hepatitis, etc seen resting in bed, not in distress appears weak but somewhat improved compared to yesterday states she feels slightly better today has more energy no abdominal pain ,nausea/vomiting, fever/chills no chest pain, dyspnea, palpitations, dizziness states tremors are improving denies anxiety, hallucinations, depression no other symptoms Review of Systems Review of Systems: all noted and negative except for above Physical Exam Physical Exam: General- oriented x 3, not in distress, speaks in sentences with no effort or accessory muscle use (+) moderately weak Eyes- (+) icterus Neck- no JVD Lungs- clear breath sounds bilaterally, no rales/wheezes Heart- normal rate, regular rhythm; no murmurs Abdomen- normal bowel sounds, nondistended, soft, nontender Extremities- no pretibial edema, no calf tenderness (+) jaundice Neuro- alert, oriented x 3; no gross focal neurologic deficits Skin- warm & dry Results & Data Results & Data ([facility]) Vital Signs (Past 12 Hours) Vital Signs Temp Pulse Resp BP Pulse Ox 05/17/21 11:46 37.0 C 85 16 96/64 L 94 05/17/21 07:50 37.0 C 85 20 98/62 L 93 all noted and reviewed including below (1) Alcoholic hepatitis Ascites presence: unspecified Qualified Code(s): K70.10 - Alcoholic hepatitis without ascites
[2021-05-17] MEDS: traZODone HCL 50 MG TAB PO PRN (20:40)
[2021-05-17] MEDS: hydrOXYzine HCl 25 MG TAB PO PRN (20:40)
[2021-05-17 21:33] LABS: Protein Creatinine Ratio Urine 0.2 (0-0.2); Total Protein Urine Random 25.9 mg/dl (0-11.9)
[2021-05-18] MEDS: PENTOXIFYLLINE 400MG EXT REL TAB PO SCH ×3 (08:32→20:50)
[2021-05-18] MEDS: POTASSIUM CHLORIDE CRTAB 20 MEQ TABCR PO SCH (08:32)
[2021-05-18] MEDS: FOLIC ACID 1 MG TAB PO SCH (08:33)
[2021-05-18] MEDS: PANTOprazole 40 MG TAB PO SCH (08:33)
[2021-05-18] MEDS: THIAMINE HCL 100 MG TAB PO SCH (08:33)
[2021-05-18] MEDS: GABAPENTIN 600 MG TAB PO SCH ×2 (08:33→20:51)
[2021-05-18] MEDS: SERTRALINE HCL 100 MG TABLET PO SCH (08:33)
[2021-05-18 08:55] LABS: Basophils # (auto) 0.12 K/uL (0-0.2); Basophils % (auto) 1.2 %; Eosinophils # (auto) 0.22 K/uL (0-0.5); Eosinophils % (auto) 2.2 %; Hematocrit (blood only) 27.5 % (37-47); Hemoglobin 9.4 g/dL (12.0-16.0); Immature Granulocytes # (auto) 0.05 K/uL (0.00-0.02); Immature Granulocytes % (auto) 0.5 %; Lymphocytes # (auto) 1.51 K/uL (1.2-3.4); Lymphocytes % (auto) 14.8 %; Mean Corpuscular Hemoglobin 34.7 pg (25-34); Mean Corpuscular Hgb Conc 34.2 g/dL (32-36); Mean Corpuscular Volume 101.5 fL (80-100); Mean Platelet Volume 9.2 fL (7.4-10.4); Monocytes # (auto) 0.88 K/uL (0.11-0.59); Monocytes % (auto) 8.6 %; Neutrophils # (auto) 7.45 K/uL (1.4-6.5); Neutrophils % (auto) 72.7 %; Platelet Count 129 K/uL (130-400); RDW Coefficient of Variation 19.8 % (11.5-14.5); RDW Standard Deviation 73.1 fL (36.4-46.3); Red Blood Count 2.71 M/uL (4.2-5.4); White Blood Count 10.23 K/uL (4.8-10.8)
[2021-05-18 09:05] LABS: INR 1.6 (0.9-1.1); Prothrombin Time 15.6 Seconds (9.0-12.0)
[2021-05-18] MEDS: CEFDINIR 300 MG CAP PO SCH ×2 (09:21→20:50)
[2021-05-18 09:46] LABS: Albumin Globulin Ratio 0.3 (0.9-2); Albumin Level 1.5 gm/dl (3.4-5.0); Bilirubin,Total 11.8 mg/dl (0.2-1); Calcium 8.2 mg/dl (8.5-10.1); Creatinine Clr Calc Pharmacy 82.2 ml/min; Est GFR (African American) 97.3 ml/min; Est GFR (Non-African American) 83.9 ml/min; Globulin 5.5 gm/dl (2.5-4.0); Potassium 4.2 mmol/L (3.5-5.1)
--- NOTE | 2021-05-18 10:24 | Gastroenterology Progress Note ---
Date of Service May 18, 2021 Assessment & Plan (1) Alcoholic hepatitis: (2) Cirrhosis: Plan: 45 year old female w hx of fatty liver, ETOH cirrhosis, RYGB who presented w c/o jaundice, abd distension, weakness, JIN. Imaging w/o signs of bile duct obstruction. MELD 24. [facility] Discriminant Function Score: 38 (on 4th day of pentoxyfylline) - Continue Ceftriaxone IV (UTI) as oupt. - Continue Pentoxifylline 400mg TID for Alcoholic Hepatitis for 1 month - If hypotension, consider Midodrine 5mg TID - May restart diuretics at time of discharge. (Renal function is normal). - 2g Na diet - Continue, permanent ETOH cessation. Recommend rehab. - Continue OP GI f/u with Dr. Connell. Will sign off. Recall GI as needed. Thank you for allowing us to participate in the care of this patient. Please call with any acute changes, questions or concerns. Please see addendum below with additional recommendation from my supervising physician. Admission and Anticipated Discharge Date Admission Date: May 14, 2021 Supervising Physician Co-Signing Physician Notes Attg add: I interviewed and examined pt, reviewed chart and labs. Pt with alc hep, stable LFT's. Stable labs - bili stable, hgb stable, WBC 10.23, creat stable, na 133. Alc hep S/p NAC on Trental - Cont current therapy, ok for d/c from our stand point. WOuld complete trental x 1 month, consider transition to steroids if no improvement in bili after 1 week. Subjective Pt was seen and evaluated, chart reviewed No abd pain. No nausea, vomiting Tolerating PO. Wishes to go home. No fever, chills, CP, SOB. Review of Systems Review of Systems: All systems reviewed & are unremarkable except as noted in HPI & below Physical Exam Constitutional: WD/WN, vitals as above Neck: trachea midline, no thyromegaly Respiratory: normal respiratory effort, lungs clear to auscultation Gastrointestinal (Abdomen): normal bowel sounds, soft, nontender, no hepatosplenomegaly Skin: no rashes, warm and dry + jaundice Results & Data ([facility]) Vital Signs (Past 12 Hours) Vital Signs Temp Pulse Pulse Resp BP BP Pulse Ox 05/18/21 07:41 79 05/18/21 06:49 36.6 C 80 18 95/55 L 93 05/18/21 03:54 37.0 C 84 20 99/54 L 94 05/18/21 00:00 89 05/17/21 23:47 36.9 C 86 20 102/65 93 Laboratory Results 05/18/21 05/18/21 05/18/21 Range/Units 07:57 07:57 07:57 WBC 10.23 (4.8-10.8) K/uL RBC 2.71 L (4.2-5.4) M/uL Hgb 9.4 L (12.0-16.0) g/dL Hct 27.5 L (37-47) % MCV 101.5 H (80-100) fL MCH 34.7 H (25-34) pg MCHC 34.2 (32-36) g/dL RDW Std Deviation 73.1 H (36.4-46.3) fL RDW Coeff of Deja 19.8 H (11.5-14.5) % Plt Count 129 L (130-400) K/uL MPV 9.2 (7.4-10.4) fL Immature Gran % (Auto) 0.5 % Neut % (Auto) 72.7 % Lymph % (Auto) 14.8 % [place] % (Auto) 8.6 % Eos % (Auto) 2.2 % Baso % (Auto) 1.2 % Neut # (Auto) 7.45 H (1.4-6.5) K/uL Lymph # (Auto) 1.51 (1.2-3.4) K/uL [place] # (Auto) 0.88 H (0.11-0.59) K/uL Eos # (Auto) 0.22 (0-0.5) K/uL Baso # (Auto) 0.12 (0-0.2) K/uL Immature Gran # (Auto) 0.05 H (0.00-0.02) K/uL PT 15.6 H (9.0-12.0) Seconds INR 1.6 H (0.9-1.1) Sodium 133 L (136-145) mmol/L Potassium 4.2 (3.5-5.1) mmol/L Chloride 105 (98-107) mmol/L Carbon Dioxide 22 (21-32) mmol/L Anion Gap 6.0 (3-11) BUN 8 (7-18) mg/dl Creatinine 0.84 (0.6-1.2) mg/dl Est Cr Clr Drug Dosing 82.2 ml/min Est GFR ( Amer) 97.3 ml/min Est GFR (Non-Af Amer) 83.9 ml/min BUN/Creatinine Ratio 9.0 L (10-20) Glucose 97 (70-99) mg/dl Calcium 8.2 L (8.5-10.1) mg/dl Total Bilirubin 11.8 H (0.2-1) mg/dl AST 103 H (15-37) U/L ALT 59 (12-78) U/L Alkaline Phosphatase 97 (45-117) U/L Total Protein 7.0 (6.4-8.2) gm/dl Albumin 1.5 L (3.4-5.0) gm/dl Globulin 5.5 H (2.5-4.0) gm/dl Albumin/Globulin Ratio 0.3 L (0.9-2) Ur Random Creatinine mg/dl U Random Total Protein (0-11.9) mg/dl Protein/Creatinin Ratio (0-0.2) 05/17/21 Range/Units 20:45 WBC (4.8-10.8) K/uL RBC (4.2-5.4) M/uL Hgb (12.0-16.0) g/dL Hct (37-47) % MCV (80-100) fL MCH (25-34) pg MCHC (32-36) g/dL RDW Std Deviation (36.4-46.3) fL RDW Coeff of Deja (11.5-14.5) % Plt Count (130-400) K/uL MPV (7.4-10.4) fL Immature Gran % (Auto) % Neut % (Auto) % Lymph % (Auto) % [place] % (Auto) % Eos % (Auto) % Baso % (Auto) % Neut # (Auto) (1.4-6.5) K/uL Lymph # (Auto) (1.2-3.4) K/uL [place] # (Auto) (0.11-0.59) K/uL Eos # (Auto) (0-0.5) K/uL Baso # (Auto) (0-0.2) K/uL Immature Gran # (Auto) (0.00-0.02) K/uL PT (9.0-12.0) Seconds INR (0.9-1.1) Sodium (136-145) mmol/L Potassium (3.5-5.1) mmol/L Chloride (98-107) mmol/L Carbon Dioxide (21-32) mmol/L Anion Gap (3-11) BUN (7-18) mg/dl Creatinine (0.6-1.2) mg/dl Est Cr Clr Drug Dosing ml/min Est GFR ( Amer) ml/min Est GFR (Non-Af Amer) ml/min BUN/Creatinine Ratio (10-20) Glucose (70-99) mg/dl Calcium (8.5-10.1) mg/dl Total Bilirubin (0.2-1) mg/dl AST (15-37) U/L ALT (12-78) U/L Alkaline Phosphatase (45-117) U/L Total Protein (6.4-8.2) gm/dl Albumin (3.4-5.0) gm/dl Globulin (2.5-4.0) gm/dl Albumin/Globulin Ratio (0.9-2) Ur Random Creatinine 114.0 mg/dl U Random Total Protein 25.9 H (0-11.9) mg/dl Protein/Creatinin Ratio 0.2 (0-0.2) (1) Alcoholic hepatitis Ascites presence: unspecified Qualified Code(s): K70.10 - Alcoholic hepatitis without ascites
[2021-05-18] MEDS ORDERED: ACETAMINOPHEN 500 MG TAB PO PRN (18:03)
--- NOTE | 2021-05-18 19:07 | Hospitalist Progress Note ---
Date of Service May 18, 2021 Assessment & Plan (1) Alcoholic hepatitis: (2) Alcohol abuse: (3) Cirrhosis: (4) Hypokalemia: (5) Hyponatremia: Plan: Generalized weakness Alcohol intoxication; sent for withdrawal Alcoholic hepatitis Acute kidney injury -resolved Elevated LFTs Possible UTI Hypokalemia - resolved Acute hyponatremia -improving History of liver cirrhosis History of gastric bypass History of alcohol abuse 05/15/2021 status post paracentesis. 2 L of fluid removed. 05/16/2021 MRCP: No obstruction Hemoglobin 7, INR 2.1 No signs of overt bleeding Discussed with GI, will transfuse 1 unit of packed RBCs, give vitamin K 10 mg IV 05/17 Hg improved to 8.6 INR improved to 1.8 10/ Hg stable 9 .4 INR 1.6 completed NAC protocol Continue with pentoxifylline 400mg TID for Alcoholic Hepatitis Continue with midodrine PRN for systolic bp < 90 Continue holding diuretics for now--> resume on discharge per GI UTI E coli per urine culture Continue ceftriaxone day #4 Alcohol Withdrawal Gabapentin taper, AWSS protocol ordered no signs of overt Withdrawal/DTs Disposition Pending PT and OT evaluation declines inpatient alcohol rehab, prefers to continue with outpatient counselling program plan of care discussed with patient in detail and at length all questions answered she is understanding, agreeable, comfortable with the plan of care Admission and Anticipated Discharge Date Admission Date: May 14, 2021 Subjective ff up for alcoholic hepatitis, etc seen resting in bed, comfortable states she continues to feel better no abdominal pain, nausea/vomiting no fever/chills no chest pain, dyspnea, palpitations, dizziness denies tremors, anxiety, hallucinations appetite better Review of Systems Review of Systems: all noted and negative except for above Physical Exam Physical Exam: General- oriented x 3, not in distress, speaks in sentences with no effort or accessory muscle use Eyes- (+) icterus Neck- no JVD Lungs- clear breath sounds bilaterally Heart- normal rate, regular rhythm; no murmurs Abdomen- normal bowel sounds, nondistended, soft, nontender Extremities- no pretibial edema, no calf tenderness Neuro- alert, oriented x 3; no gross focal neurologic deficits Skin- warm & dry Results & Data Results & Data ([facility]) Vital Signs (Past 12 Hours) Vital Signs Temp Pulse Pulse Resp BP Pulse Ox 05/18/21 15:53 36.9 C 73 18 99/63 L 91 05/18/21 15:06 84 05/18/21 11:00 36.9 C 82 18 88/56 L 95 05/18/21 07:41 79 all noted and reviewed including below (1) Alcoholic hepatitis Ascites presence: unspecified Qualified Code(s): K70.10 - Alcoholic hepatitis without ascites
[2021-05-18] MEDS: traZODone HCL 50 MG TAB PO PRN (22:36)
[2021-05-18] MEDS: hydrOXYzine HCl 25 MG TAB PO PRN (22:36)
[2021-05-19] MEDS: THIAMINE HCL 100 MG TAB PO SCH (08:23)
[2021-05-19] MEDS: PENTOXIFYLLINE 400MG EXT REL TAB PO SCH (08:24)
[2021-05-19] MEDS: SERTRALINE HCL 100 MG TABLET PO SCH (08:24)
[2021-05-19] MEDS: FOLIC ACID 1 MG TAB PO SCH (08:24)
[2021-05-19] MEDS: PANTOprazole 40 MG TAB PO SCH (08:24)
[2021-05-19] MEDS: CEFDINIR 300 MG CAP PO SCH (08:24)
[2021-05-19] MEDS: hydrOXYzine HCl 25 MG TAB PO PRN (09:57)
--- NOTE | 2021-05-19 11:00 | Hospitalist Progress Note ---
Date of Service May 19, 2021 Assessment & Plan (1) Alcoholic hepatitis: (2) Alcohol abuse: (3) Cirrhosis: (4) Hypokalemia: (5) Hyponatremia: Plan: Alcoholic hepatitis Alcohol Withdrawal GI consulted 05/15/2021 status post paracentesis. 2 L of fluid removed. MRCP: No obstruction Hemoglobin 7, INR 2.1 No signs of overt bleeding transfused 1 unit of packed RBCs, given vitamin K 10 mg IV Hg improved, stable 9 .4 INR 1.6 completed N-Acetylcysteine protocol Continue with pentoxifylline 400mg TID for Alcoholic Hepatitis x 1 month use midodrine 5mg TID PRN for hypotension Continue holding diuretics for now--> resume on discharge per GI Acute kidney injury -resolved E coli UTI per urine culture given ceftriaxone and cefuroxime x 5 days continue cefuroxime x 2 more days to complete 7 day course Alcohol Withdrawal Gabapentin taper, AWSS protocol ordered no signs of overt Withdrawal/DTs History of liver cirrhosis History of gastric bypass History of alcohol abuse Disposition d/c home declines inpatient alcohol rehab, prefers to continue with outpatient counselling program ff up with PCP in 1 week plan of care discussed with patient in detail and at length all questions answered she is understanding, agreeable, comfortable with the plan of care Admission and Anticipated Discharge Date Admission Date: May 14, 2021 Subjective ff up for alcoholic hepatitis, etc seen resting in bed, sleeping but easily awakened in good spirits, bright and alert states she feels much better overall denies abdominal pain ,nausea, chills, confusion no chest pain, dyspnea, palpitations, dizziness no tremors, anxiety Review of Systems Review of Systems: all noted and negative except for above Physical Exam Physical Exam: General- oriented x 2, not in distress, speaks in sentences with no effort or accessory muscle use Eyes- (+) icteric Neck- no JVD Lungs- clear BS BL no rales/wheezing Heart- normal rate, regular rhythm; no murmurs Abdomen- normal bowel sounds, nondistended, soft, nontender Extremities- no pretibial edema, no calf tenderness Neuro- alert, oriented x 3; no gross focal neurologic deficits Skin- warm & dry Results & Data Results & Data ([facility]) Vital Signs (Past 12 Hours) Vital Signs Temp Pulse Pulse Resp BP BP Pulse Ox 05/19/21 07:46 79 05/19/21 07:43 36.7 C 90 18 95/61 L 92 05/19/21 03:02 36.6 C 84 16 100/61 92 05/19/21 01:23 78 05/18/21 23:32 36.7 C 77 18 92/51 L 95 all noted and reviewed including below (1) Alcoholic hepatitis Ascites presence: unspecified Qualified Code(s): K70.10 - Alcoholic hepatitis without ascites
--- NOTE | 2021-05-19 11:19 | Discharge Summary ---
Date of Service May 19, 2021 Admission HPI Per Admitting Provider This is a 45 y/o female with a history of EtOH cirrhosis with ongoing EtOH use, ascites, prior alcoholic hepatitis, multifactorial anemia (B12 and iron deficiency), depression, prior gastric bypass, and malnutrition who presents to the ED today with progressive weakness, fatigue, JIN, and yellowing of her skin for the past 2-3 weeks. Pt reports that she noticed increasing abdominal distention around Labor Day that has worsened since then despite taking her diuretics as directed. On 05/03, she was seen by her PCP for dysuria and diagnosed with a UTI that was treated with Bactrim x 7 days. That evening she developed a fever with associated chills and a Tmax of 100.8F that was present intermittently x 5 days before it seemed to "break." The dysuria has since resolved. About a week ago, she developed nasal congestion, ear fullness, and headache but this has also since resolved. However, she continues to note increased dyspnea, specifically on exertion. She reports that she has to stop multiple times walking up the steps and is unable to carry anything. Even getting up to go to the bathroom will now leave her winded. She also notes increased fatigue and generalized weakness with multiple falls. Some residual back pain related to a fall on Labor Day when she lost her balance and fell down two steps, landing on her back. Not eating much because of the weakness (unable to prepare her own food) but reports that she is hungry. Has noted nausea and dry heaves but denies vomiting. Having loose stools with incontinence at times but denies melena or hematochezia. Has noted yellowing of her skin and eyes for the past two weeks, which is also worsening. Associated dark urine. History of alcohol abuse - reports that she stopped drinking whiskey about a month ago. She is currently drinking one single serve bottle of wine daily - last drink was two days ago. Denies any symptoms of withdrawal at present. Denies prior alcohol-withdrawal seizure. Admission Exam (Per Admitting) Constitutional Constitutional: + thin; no acute distress Eyes: + scleral abnormality (scleral icterus) Neck: trachea midline Respiratory: no respiratory distress and no labored breathing Auscultation: lungs clear to auscultation bilaterally; no rales, no rhonchi and no wheezes Cardiovascular: Rate/Rhythm: regular rate and regular rhythm Heart Sounds: no murmur Gastrointestinal (Abdomen): Inspection/Auscultation: + abdomen distended (softly) and normal bowel sounds Percussion/Palpation: + dullness to percussion (flanks) and + tympanic to percussion (other than flanks); abdomen nontender and no guarding Musculoskeletal: Head/Neck/Chest: normocephalic, head atraumatic and neck supple Skin: + jaundice Neurologic: moves all extremities; no focal motor deficits Psychiatric: A+Ox3, euthymic affect Discharge Data Consultations 05/14/21 13:41 ED Decision to Admit Stat 05/14/21 16:39 Consult Gastroenterology Routine Procedures Performed MR MRCP HISTORY: 45 years-old Female r/o biliary obstruction; elevated Tbili acute nausea and vomiting with generalized abdominal pain COMPARISON: Ultrasound-guided paracentesis of same day, CT abdomen pelvis 09/30/2020 TECHNIQUE: MRCP without the use of IV contrast was obtained according to institutional protocol FINDINGS: Motion degraded exam. Cirrhotic morphology of the liver with recanalization of the umbilical vein. Cysts of the left hepatic lobe none measure up to 2 cm. The spleen measures the upper limits of normal in size. Small to moderate abdominal pelvic ascites. Wall thickening of the stomach may be related to partial distention. Additionally there is partially imaged wall thickening involving the ascending and proximal transverse colon. No pancreatic ductal dilation identified. Moderately distended gallbladder appears unchanged from comparison. No cholelithiasis identified. Evaluation of the biliary tree is limited secondary to the aforementioned motion artifact. The common bile duct measures 4 mm transversely. No biliary lesion, stricture or choledocholithiasis identified. IMPRESSION: 1. Moderately distended gallbladder is unchanged from comparison. No cholelithiasis or biliary ductal dilation identified. 2. Cirrhotic morphology of the liver with stigmata of portal venous hypertension including recanalized umbilical vein with small to moderate abdominal ascites. 3. Wall thickening of the ascending and transverse colon may be secondary to portal colopathy versus a nonspecific colitis. ACT 112: Negative or not required by law. Hospital Course (1) Alcoholic hepatitis: (2) Alcohol abuse: (3) Cirrhosis: (4) Hypokalemia: (5) Hyponatremia: Alcoholic hepatitis Alcohol Withdrawal GI consulted 05/15/2021 status post paracentesis. 2 L of fluid removed. MRCP: No obstruction Hemoglobin 7, INR 2.1 No signs of overt bleeding transfused 1 unit of packed RBCs, given vitamin K 10 mg IV Hg improved, stable 9 .4 INR 1.6 completed N-Acetylcysteine protocol Continue with pentoxifylline 400mg TID for Alcoholic Hepatitis x 1 month use midodrine 5mg TID PRN for hypotension Resume diuretics upon discharge per GI Follow-up with PCP in 1 week Follow-up with GI in 1 to 2 weeks Acute kidney injury -resolved E coli UTI per urine culture given ceftriaxone and cefuroxime x 5 days continue cefuroxime x 2 more days to complete 7 day course Alcohol Withdrawal Gabapentin taper, AWSS protocol ordered no signs of overt Withdrawal/DTs History of liver cirrhosis History of gastric bypass History of alcohol abuse Disposition d/c home declines inpatient alcohol rehab, prefers to continue with outpatient counselling program ff up with PCP in 1 week plan of care discussed with patient in detail and at length all questions answered she is understanding, agreeable, comfortable with the plan of care
[2021-05-19] MEDS ORDERED: GABAPENTIN 600 MG TAB PO SCH (21:00)
== END 2021-05-19 12:34 | disposition home or self-care (01) | DRG 433 ==
LOC: ED 10:27 → SUATTDRO 14:37 → 2W 14:37